=== PATIENT | male | born 1935 | race Caucasian/White ===

== ENCOUNTER → 2017-01-01 | Outpatient (CLI) | payer MEDICARE, BC | LOC: CPPFTMAIN 11:56 | PROVIDERS: ATTEND Internal Medicine Cardiovascular Disease | DX: R06.09 Other forms of dyspnea (principal) | CPT/HCPCS: 94060; 94726; 94729 ==

== ENCOUNTER → 2017-11-18 | Outpatient (CLI) | payer MEDICARE, BC ==
--- NOTE | 2017-11-18 15:46 | CT ---
EXAMINATION TYPE: CT chest w con DATE OF EXAM: 11/18/2017 COMPARISON: NONE HISTORY: Shortness of breath CT DLP: 271.7 mGycm. Automated Exposure Control for Dose Reduction was Utilized. TECHNIQUE: CT scan of the thorax is performed following with IV Contrast, patient injected with 100 mL of Isovue 300. FINDINGS: LUNGS: The lungs are grossly clear, there is no concerning parenchymal mass identified. There is no p leural effusion or pneumothorax seen. The tracheobronchial tree is patent. 8mm probable intrafissura l lymph node is seen along the minor fissure on series 4 image 36. This elongates on coronal series 6 image 21. Benign right middle lobe calcified granuloma is present. Adjacent noncalcified solid 4 mm right middle lobe nodule seen on series 4 image 40. Within the subpleural right lower lobe there are two 3 mm solid pulmonary nodules on series 4 image 40 and image 37. 4 mm left basilar subpleural pulm onary nodule seen in series 4 image 40. Focal parenchymal scarring is present adjacent to a chronic f racture deformity of a posterior lateral lower rib. MEDIASTINUM: Prominent 1 cm short axis right suprahilar lymph node is seen. There are no greater than 1 cm hilar or mediastinal lymph nodes. No pericardial effusion is seen. Extensive three-vessel co ronary calcifications are present. OTHER: The stomach is largely intrathoracic and dilated with debris seen in the distal esophagus. The re is extensive arthropathy of the left glenohumeral joint and extensive arthropathy of the right gle nohumeral joint to a lesser degree on the left. Chronic displaced fracture deformity that is partiall y callused of left rib 9 and its posterior lateral aspect is seen. Extensive degenerative changes of the visualized thoracolumbar spine are present. There is an exaggerated thoracic kyphosis and reg nakia deformity that is age indeterminate of T11. Old fracture deformity of the proximal sternal body is also seen that is corticated. S-shaped scoliotic curvature of the thoracolumbar spine is seen. IMPRESSION: 1. Largely intrathoracic dilated stomach with distal esophageal intraluminal debris that may relate t o reflux. 2. Bilateral pulmonary nodules that are subcentimeter (measuring up to 4 mm in the left lung base). C T thorax is recommended in one year for evaluation of stability. 3. Age-indeterminate compression deformity of the T11 vertebral body. Correlate with point tenderness to determine acuity. 4. Old fracture deformity of the proximal sternal body and displaced old fracture deformity of the po sterior lateral left rib 9 with resultant adjacent left basilar pulmonary fibrotic changes. 5. Extensive three-vessel coronary artery calcifications, marker of coronary artery disease.
== END | disposition home or self-care (01) ==
LOC: RADCTMAIN 13:55
PROVIDERS: ATTEND Internal Medicine
DX: R91.8 Other nonspecific abnormal finding of lung field (principal); I25.10 Atherosclerotic heart disease of native coronary artery without angina pectoris; R06.00 Dyspnea, unspecified
CPT/HCPCS: 82565; 84520; 71260; 36415; Q9967

== ENCOUNTER 2019-12-06 16:26 | Inpatient (IN) | payer MEDICARE, BC ==
[2019-12-06] MEDS ORDERED: SODIUM CHLORIDE 0.9% 500 ML 500 ML IV STA (16:28)
[2019-12-06] MEDS ORDERED: SODIUM CHLORIDE 0.9% 1,000 ML IV STA (16:28)
[2019-12-06] MEDS ORDERED: DOPamine DRIP 800 MG in DEXTROSE/WATER 1 250ML.BAG IV ONE (17:10)
[2019-12-06 17:17] LABS: Basophils % (A) 0 %; Eosinophils % (A) 0 %; HCT 39.3 % (39.0-53.0); HGB 13.2 gm/dL (13.0-17.5); Lymphocytes % (A) 12 %; MCHC 33.5 g/dL (31.0-37.0); MCV 98.6 fL (80.0-100.0); Mean Platelet Volume 8.9; Monocytes # (A) 0.5 k/uL (0-1.0); Monocytes % (A) 6 %; Neutrophils # (A) 6.4 k/uL (1.3-7.7); Neutrophils % (A) 80 %; RBC 3.99 m/uL (4.30-5.90); RDW 13.1 % (11.5-15.5)
[2019-12-06 17:19] LABS: Platelet Count 94 k/uL (150-450)
[2019-12-06 17:25] LABS: Albumin 4.2 g/dL (3.5-5.0); Calcium 10.4 mg/dL (8.4-10.2); Magnesium 2.3 mg/dL (1.6-2.3); Potassium 5.9 mmol/L (3.5-5.1); Total Protein 6.5 g/dL (6.3-8.2)
[2019-12-06] MEDS ORDERED: INSULIN REGULAR 100 UNIT/ML VIAL IV ONE (17:29)
[2019-12-06] MEDS ORDERED: SODIUM POLYSTYRENE SULFONATE 15 GM/60 ML BOTTLE PO ONE (17:29)
[2019-12-06] MEDS ORDERED: DEXTROSE 50% SYRINGE 50 ML IVP ONE (17:29)
[2019-12-06] MEDS ORDERED: SODIUM CHLORIDE 0.9% 500 ML 500 ML IV ONE (17:30)
[2019-12-06 17:33] LABS: INR 1.2 (<1.2); Partial Thromboplastin Time 21.9 sec (22.0-30.0); Prothrombin Time 12.1 sec (9.0-12.0)
--- NOTE | 2019-12-06 17:34 | ED ---
General Adult HPI - General Chief complaint: Arrhythmia/Palpitations Stated complaint: bradycardia Time Seen by Provider: 12/06/19 16:28 Source: patient, EMS, RN notes reviewed, old records reviewed Mode of arrival: EMS Limitations: no limitations - History of Present Illness Initial comments: 84-year-old male presenting for evaluation of generalized weakness and bradycardia. Patient was transferred from outside hospital, found to be in a junctional bradycardia, he was in acute renal failure with an elevated potassium. He was given medication for hyperkalemia and transferred for close monitoring, cardiology consultation. 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 Additionally he does take NSAIDs for arthritis pain. He denies vomiting. Denies diarrhea. No 3 days history of hyperkalemia, or chronic kidney disease. - Related Data Home Medications Medication Instructions Recorded Confirmed Gabapentin 400 mg PO BID 05/10/14 12/06/19 Latanoprost Ophth [Xalatan 0.005%] 1 drop BOTH EYES HS 05/10/14 12/06/19 Levothyroxine Sodium [Synthroid] 25 mcg PO DAILY 05/10/14 12/06/19 Ascorbic Acid [Vitamin C] 1,000 mg PO DAILY 05/02/15 12/06/19 Ca/D3/Mag/Zinc/Walker/Ed/Mgbor 1 tab PO BID 05/02/15 12/06/19 [Caltrate 600+D3+Min Chew Tab] Cholecalciferol [Vitamin D3] 1,000 unit PO DAILY 05/02/15 12/06/19 Cyanocobalamin [Vitamin B-12] 500 mcg PO DAILY 05/02/15 12/06/19 Fish Oil/Dha/Epa [Fish Oil 1,200 1 tab PO DAILY 05/02/15 12/06/19 mg Fish Oil] Glucosamine Sulfate 500 mg PO DAILY 05/02/15 12/06/19 Atorvastatin [Lipitor] 20 mg PO HS 04/16/16 12/06/19 Acetaminophen [Tylenol Extra 1,000 mg PO Q8H PRN 12/06/19 12/06/19 Strength] Levofloxacin 500 mg PO DAILY 12/06/19 12/06/19 Lysine [l-Lysine] 500 mg PO DAILY 12/06/19 12/06/19 Naproxen Sodium [Aleve] 220 mg PO BID 12/06/19 12/06/19 Omeprazole 20 mg PO BID 12/06/19 12/06/19 Tamsulosin [Flomax] 0.4 mg PO DAILY 12/06/19 12/06/19 Ultimate Colon Care Formula 1 cap PO TID 12/06/19 12/06/19 amLODIPine [Norvasc] 2.5 mg PO DAILY 12/06/19 12/06/19 Previous Rx's Medication Instructions Recorded Isosorbide Mononitrate ER [Imdur] 30 mg PO DAILY 90 Days tab 05/03/15 Metoprolol Tartrate [Lopressor] 25 mg PO BID #180 tablet 05/03/15 Allergies Allergy/AdvReac Type Severity Reaction Status Date / Time Penicillins Allergy Rash/Hives Verified 12/06/19 17:51 celecoxib [From Celebrex] AdvReac bp and Verified 12/06/19 17:51 heart rate went low when taken with bactrim sulfamethoxazole AdvReac bp and Verified 12/06/19 17:51 [From Bactrim] heart rate went low when taken with celebrex trimethoprim [From Bactrim] AdvReac bp and Verified 12/06/19 17:51 heart rate went low when taken with celebrex Review of Systems ROS Statement: Those systems with pertinent positive or pertinent negative responses have been documented in the HPI. ROS Other: All systems not noted in ROS Statement are negative. Past Medical History Past Medical History: Eye Disorder, GERD/Reflux, Hyperlipidemia, Hypertension, Osteoarthritis (OA), Prostate Disorder, Thyroid Disorder Additional Past Medical History / Comment(s): HIATAL HERNIA, gluacoma History of Any Multi-Drug Resistant Organisms: None Reported Past Surgical History: Appendectomy, Heart Catheterization, Hernia Repair Additional Past Surgical History / Comment(s): BARBRA CATARACT, bowel surgery bowel was twisted Past Anesthesia/Blood Transfusion Reactions: No Reported Reaction Past Psychological History: No Psychological Hx Reported Smoking Status: Never smoker - Past Family History Mother Family Medical History: No Reported History General Exam Limitations: no limitations General appearance: alert, in no apparent distress Head exam: Present: atraumatic, normocephalic Eye exam: Present: normal appearance, PERRL ENT exam: Present: mucous membranes dry Neck exam: Present: normal inspection. Absent: tenderness, meningismus Respiratory exam: Present: normal lung sounds bilaterally. Absent: respiratory distress, wheezes Cardiovascular Exam: Present: normal rhythm, bradycardia GI/Abdominal exam: Present: soft. Absent: distended, tenderness, guarding Extremities exam: Present: normal inspection, normal capillary refill. Absent: pedal edema, calf tenderness Neurological exam: Present: alert, oriented X3, CN II-XII intact. Absent: motor sensory deficit Psychiatric exam: Present: normal affect, normal mood Skin exam: Present: warm, dry, intact. Absent: cyanosis, diaphoretic Course Vital Signs 12/06/19 12/06/19 16:27 18:38 Temperature 97.9 F Pulse Rate 36 L 44 L Respiratory 16 16 Rate Blood Pressure 110/64 85/55 O2 Sat by Pulse 97 96 Oximetry - Reevaluation(s) Reevaluation #1: 12/06/19 17:[address] Cristobal in the emergency department recommends initiating dopamine at 5 mics. EKG Findings - EKG Comments: EKG Findings:: Junctional rhythm, low voltage, no ST segment elevation rate of 38, QRS duration 98, QTC 394. EKG repeated at 1815, interpreted as sinus rhythm, suspect atrial fib with incomplete right bundle, rate of 71, OR interval 144, QRS duration 104, QTC 447 Medical Decision Making - Medical Decision Making 84-year-old male presenting as a transfer from outside hospital with junctional rhythm, acute renal failure, hyperkalemia. Patient is bradycardic with a stable blood pressure upon arrival. Complaining of some fatigue and generalized weakness. No dyspnea, no chest pain. He appears dehydrated with dry mucous membranes. He is given additional IV fluid, laboratory studies are repeated, he has acute renal failure continues to have an elevated potassium 5.9. This is treated with insulin, dextrose, IV fluids, Kayexalate. He is evaluated by cardiology Dr. Cristobal in the emergency department does recommend dopamine. He is started on dopamine with significant improvement in heart rate. Blood pressure remained stable. I discussed case with Dr. Huffman, recommends 100 mL of normal saline per hour and recheck potassium in 4 hours. Diagnosis: Junctional rhythm, bradycardia, acute renal failure, hyperkalemia, dehydration - Lab Data Result diagrams: 12/06/19 16:41 12/06/19 16:41 Lab Results 12/06/19 12/06/19 12/06/19 Range/Units 16:41 16:41 16:41 WBC 8.0 (3.8-10.6) k/uL RBC 3.99 L (4.30-5.90) m/uL Hgb 13.2 (13.0-17.5) gm/dL Hct 39.3 (39.0-53.0) % MCV 98.6 (80.0-100.0) fL MCH 33.0 (25.0-35.0) pg MCHC 33.5 (31.0-37.0) g/dL RDW 13.1 (11.5-15.5) % Plt Count 94 L (150-450) k/uL Neutrophils % 80 % Lymphocytes % 12 % Monocytes % 6 % Eosinophils % 0 % Basophils % 0 % Neutrophils # 6.4 (1.3-7.7) k/uL Lymphocytes # 1.0 (1.0-4.8) k/uL Monocytes # 0.5 (0-1.0) k/uL Eosinophils # 0.0 (0-0.7) k/uL Basophils # 0.0 (0-0.2) k/uL PT 12.1 H (9.0-12.0) sec INR 1.2 H (<1.2) APTT 21.9 L (22.0-30.0) sec Sodium 136 L (137-145) mmol/L Potassium 5.9 H (3.5-5.1) mmol/L Chloride 101 (98-107) mmol/L Carbon Dioxide 23 (22-30) mmol/L Anion Gap 12 mmol/L BUN 105 H* (9-20) mg/dL Creatinine 3.65 H (0.66-1.25) mg/dL Est GFR (CKD-EPI)AfAm 17 (>60 ml/min/1.73 sqM) Est GFR (CKD-EPI)NonAf 14 (>60 ml/min/1.73 sqM) Glucose 88 (74-99) mg/dL Plasma Lactic Acid Ector (0.7-2.0) mmol/L Calcium 10.4 H (8.4-10.2) mg/dL Magnesium 2.3 (1.6-2.3) mg/dL Total Bilirubin 1.0 (0.2-1.3) mg/dL AST 76 H (17-59) U/L ALT 84 H (4-49) U/L Alkaline Phosphatase 59 (38-126) U/L Troponin I (0.000-0.034) ng/mL Total Protein 6.5 (6.3-8.2) g/dL Albumin 4.2 (3.5-5.0) g/dL 12/06/19 12/06/19 Range/Units 16:41 16:41 WBC (3.8-10.6) k/uL RBC (4.30-5.90) m/uL Hgb (13.0-17.5) gm/dL Hct (39.0-53.0) % MCV (80.0-100.0) fL MCH (25.0-35.0) pg MCHC (31.0-37.0) g/dL RDW (11.5-15.5) % Plt Count (150-450) k/uL Neutrophils % % Lymphocytes % % Monocytes % % Eosinophils % % Basophils % % Neutrophils # (1.3-7.7) k/uL Lymphocytes # (1.0-4.8) k/uL Monocytes # (0-1.0) k/uL Eosinophils # (0-0.7) k/uL Basophils # (0-0.2) k/uL PT (9.0-12.0) sec INR (<1.2) APTT (22.0-30.0) sec Sodium (137-145) mmol/L Potassium (3.5-5.1) mmol/L Chloride (98-107) mmol/L Carbon Dioxide (22-30) mmol/L Anion Gap mmol/L BUN (9-20) mg/dL Creatinine (0.66-1.25) mg/dL Est GFR (CKD-EPI)AfAm (>60 ml/min/1.73 sqM) Est GFR (CKD-EPI)NonAf (>60 ml/min/1.73 sqM) Glucose (74-99) mg/dL Plasma Lactic Acid Ector 1.8 (0.7-2.0) mmol/L Calcium (8.4-10.2) mg/dL Magnesium (1.6-2.3) mg/dL Total Bilirubin (0.2-1.3) mg/dL AST (17-59) U/L ALT (4-49) U/L Alkaline Phosphatase (38-126) U/L Troponin I 0.027 (0.000-0.034) ng/mL Total Protein (6.3-8.2) g/dL Albumin (3.5-5.0) g/dL Critical Care Time Critical Care Time: Yes Total Critical Care Time: 35 Disposition Clinical Impression: Junctional bradycardia, Acute renal failure, Hyperkalemia Disposition: ADMITTED IP TO THIS [facility] Condition: Stable Is patient prescribed a controlled substance at d/c from ED?: No Referrals: Benji Turcios MD [Primary Care Provider] - 1-2 days Decision to Admit Reason: Admit from EC Decision Date: 12/06/19 Decision Time: 18:41
[2019-12-06] MEDS ORDERED: ACETAMINOPHEN TAB 325 MG TAB PO PRN (18:41)
[2019-12-06] MEDS ORDERED: NALOXONE 0.4 MG/ML 1 ML VIAL IV PRN (18:41)
[2019-12-06 21:30] LABS: Albumin 4.1 g/dL (3.5-5.0); Calcium 9.9 mg/dL (8.4-10.2); Potassium 5.4 mmol/L (3.5-5.1); Total Bilirubin 1.1 mg/dL (0.2-1.3); Total Protein 6.4 g/dL (6.3-8.2)
[2019-12-06 22:41] LABS: Glucose,Whole Blood 124 mg/dL (75-99)
--- NOTE | 2019-12-06 23:20 | CONS ---
CONSULTATION CHIEF COMPLAINT: Bradycardia. Hugh is an 84-year-old gentleman with a history of hypothyroidism and hypertension who presented to hospital complaining of generalized weakness, fatigue, tiredness. He initially presented to hospital in [place], was found to be in junctional bradycardia with severe hyperkalemia, and he was transferred over to [facility]. At the time of my evaluation, the patient is comfortable at rest, stable, not in distress. He remains with a heart rate of 36 beats per minute, blood pressure is 100/64, respiratory rate is 18. Labs show that the potassium is elevated at 5.9. AST and ALT are elevated. Troponin is normal. Hemoglobin is 13.2. EKG shows junctional bradycardia with a heart rate of 38 beats per minute. I spoke to the ER physician and asked him to address the hyperkalemia with insulin dextrose, Kayexalate and calcium gluconate. Once this is done, I anticipate his heart rate improving. We will also start him on a small dose of dopamine. If he develops symptomatic hypotension or significant pauses, he will need temporary pacemaker tonight. Patient is on beta blockers. Obviously we are going to hold it for now. PAST MEDICAL HISTORY: Past medical history is significant for hypothyroidism, hypertension, questionable history of angina. MEDICATIONS: Medications include Imdur 30 daily, Lawrence, Neurontin, B12, clindamycin, Lipitor,aspirin, vitamin C. ALLERGIES: PENICILLIN, CELEBREX, BACTRIM. FAMILY HISTORY: Negative for premature coronary artery disease. SOCIAL HISTORY: Negative for current smoking, EtOH abuse or drug abuse. REVIEW OF SYSTEMS: HEENT is unremarkable. CARDIAC: As described above. RESPIRATORY: As described above. GI: Negative. GENITOURINARY: Negative. ALLERGY: Negative. IMMUNOLOGY: Negative. SKIN: Negative. MUSCULOSKELETAL: Significant for arthritis. PSYCHOSOCIAL: Negative. ENDOCRINE: Negative. CONSTITUTIONAL: Significant for fatigue, tiredness, not feeling well. PHYSICAL EXAMINATION: The patient is bradycardic. Blood pressure is 110/64, respiratory rate 18. Chest exam reveals good air entry bilaterally. Heart exam reveals first and second heart sounds. No gallop. He has a systolic murmur at the left lower sternal border. Abdomen is soft. Examination of extremities reveals bilateral 1+ pitting edema. Peripheral pulses are palpable. LABS: Labs show that the potassium is 5.9, BUN is 105, creatinine is 3.6. Magnesium is 2.3. ASSESSMENT: 1. Junctional bradycardia secondary to hyperkalemia. 2. Acute renal failure. PLAN: Will treat the hyperkalemia, hydrate the patient, consult Nephrology. I will obtain a 2D echo. Hold the beta blockers. intravenous dopamine for bradycardia. Patient may need a temporary pacemaker if he becomes symptomatic or develops significant pauses, but I anticipate the heart rate improving once the hyperkalemia is corrected. DESTINEE / MARK: [id number] /
--- NOTE | 2019-12-07 | P.HPIM ---
History of Present Illness H&P Date: 12/06/19 Chief Complaint: 1 acute kidney failure, severe bradycardia and sick sinus s yndrome, advance 84-year-old male one of Dr. Turcios's patient who was in the office 2 weeks ago for second finger infection of the right hand was treated with oral antibiotic without improvement ended up having another antibiotics orally according to 's and has done slightly but better with it. 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 Patient ended up going to the emergency department and [facility] where was found to be in acute renal failure with significant hyperkalemia and found to have severe bradycardia with junctional rhythm with pulse rate running in the 40s. Not a clear with of the acute renal failure happen first or the heart block causing hypoperfusion and renal failure is the reason. Patient ended up having transcutaneous pacer was started on hydration consult nephrology will be admitted to the ICU the rest of his lab value with the bun up to 105 creatinine 2.65 his calcium was 10.4 potassium 5.9. Patient will be seen cardiology and nephrology slightly elevated liver function tests most likely from hypoperfusion as well. Review of Systems CONSTITUTIONAL: Well-developed no acute respiratory distress. Looks older than his age. EYES: No icterus sclerae, no conjunctivitis. EARS, NOSE, MOUTH, THROAT, and FACE: No sore throat, lymphadenopathy, carotid bruits or deformity. RESPIRATORY: Mild shortness of breath. CARDIOVASCULAR: Severe bradycardia with PND orthopnea and palpitation. GASTROINTESTINAL: Abdominal pain with nausea no vomiting. GENITOURINARY: Decrease urine output with acute renal failure. INTEGUMENT/BREAST: Negative for any muscular injury with mild osteoarthritis.. HEMATOLOGIC/LYMPHATIC: Negative for bleed or purpura. MUSCULOSKELTAL: Negative for Myalgia or arthralgia. NEURLOGICAL: Presyncope generalized weakness and worsening dementia. BEHAVIORAL/PSYCH: Negative. ENDOCRINE: Negative. Past Medical History Past Medical History: Eye Disorder, GERD/Reflux, Hyperlipidemia, Hypertension, Osteoarthritis (OA), Prostate Disorder, Thyroid Disorder Additional Past Medical History / Comment(s): HIATAL HERNIA, gluacoma History of Any Multi-Drug Resistant Organisms: None Reported Past Surgical History: Appendectomy, Heart Catheterization, Hernia Repair Additional Past Surgical History / Comment(s): BARBRA CATARACT, bowel surgery bowel was twisted Past Anesthesia/Blood Transfusion Reactions: No Reported Reaction Past Psychological History: No Psychological Hx Reported Smoking Status: Never smoker - Past Family History Mother Family Medical History: No Reported History Medications and Allergies Home Medications Medication Instructions Recorded Confirmed Type Gabapentin 400 mg PO BID 05/10/14 12/06/19 History Latanoprost Ophth [Xalatan 0.005%] 1 drop BOTH EYES HS 05/10/14 12/06/19 History Levothyroxine Sodium [Synthroid] 25 mcg PO DAILY 05/10/14 12/06/19 History Ascorbic Acid [Vitamin C] 1,000 mg PO DAILY 05/02/15 12/06/19 History Ca/D3/Mag/Zinc/Walker/Ed/Mgbor 1 tab PO BID 05/02/15 12/06/19 History [Caltrate 600+D3+Min Chew Tab] Cholecalciferol [Vitamin D3] 1,000 unit PO DAILY 05/02/15 12/06/19 History Cyanocobalamin [Vitamin B-12] 500 mcg PO DAILY 05/02/15 12/06/19 History Fish Oil/Dha/Epa [Fish Oil 1,200 1 tab PO DAILY 05/02/15 12/06/19 History mg Fish Oil] Glucosamine Sulfate 500 mg PO DAILY 05/02/15 12/06/19 History Isosorbide Mononitrate ER [Imdur] 30 mg PO DAILY 90 Days tab 05/03/15 12/06/19 Rx Metoprolol Tartrate [Lopressor] 25 mg PO BID #180 tablet 05/03/15 12/06/19 Rx Atorvastatin [Lipitor] 20 mg PO HS 04/16/16 12/06/19 History Acetaminophen [Tylenol Extra 1,000 mg PO Q8H PRN 12/06/19 12/06/19 History Strength] Levofloxacin 500 mg PO DAILY 12/06/19 12/06/19 History Lysine [l-Lysine] 500 mg PO DAILY 12/06/19 12/06/19 History Naproxen Sodium [Aleve] 220 mg PO BID 12/06/19 12/06/19 History Omeprazole 20 mg PO BID 12/06/19 12/06/19 History Tamsulosin [Flomax] 0.4 mg PO DAILY 12/06/19 12/06/19 History Ultimate Colon Care Formula 1 cap PO TID 12/06/19 12/06/19 History amLODIPine [Norvasc] 2.5 mg PO DAILY 12/06/19 12/06/19 History Allergies Allergy/AdvReac Type Severity Reaction Status Date / Time Penicillins Allergy Rash/Hives Verified 12/06/19 17:51 celecoxib [From Celebrex] AdvReac bp and Verified 12/06/19 17:51 heart rate went low when taken with bactrim sulfamethoxazole AdvReac bp and Verified 12/06/19 17:51 [From Bactrim] heart rate went low when taken with celebrex trimethoprim [From Bactrim] AdvReac bp and Verified 12/06/19 17:51 heart rate went low when taken with celebrex Physical Exam Vitals: Vital Signs Temp Pulse Resp BP Pulse Ox 12/06/19 22:41 97.7 F 52 L 18 115/61 97 12/06/19 22:04 97.9 F 56 L 18 122/61 97 12/06/19 20:36 55 L 16 91/52 96 12/06/19 18:38 44 L 16 85/55 96 12/06/19 16:27 97.9 F 36 L 16 110/64 97 Intake and Output 12/06/19 12/06/19 12/07/19 14:59 22:59 06:59 Intake Total 19.735 Output Total 500 Balance -480.265 Intake: Intake, IV Titration 19.735 Amount DOPamine DRIP 800 mg In 19.735 Dextrose/Water 1 250ml. bag @ 5 MCG/KG/MIN 5.528 mls/hr IV .Q24H ONE Rx#: [id number] Output: Urine 500 Other: Weight 58.967 kg General Appearance: Alert, cooperative, no distress, appears stated age. Neck HEENT: Supple, no lymphadenopathy, no thyroid enlargement, no carotid bruits. Lungs: Decreased breath some bilateral fine rhonchi. No crackles mild expiratory wheezes. Chest Wall: Decrease expansion with deep inspiration no tenderness and no deformity was found on exam, no costochondral pain or discomfort. Heart: Irregular rate and rhythm, S1, S2 possible history positive JVD with severe bradycardia and arrhythmia with systolic murmur. Back: Symmetric, no curvature, ROM normal, no CVA tenderness. Abdomen: Soft, non-tender, bowel sounds active all four quadrants, no masses, no organomegaly. Extremities: Severe advance arthralgia look like severe osteoarthritis with mild healing cellulitis and small ulcer area on the second finger on the right side. Pulses: 2+ and symmetric. Skin: Skin color, texture, tugor normal, no rashes or lesions. Neurologic: Alert oriented with severe confusion moving all his 4 extremities generalized weakness no focal deficit. Results CBC & Chem 7: 12/06/19 16:41 12/06/19 20:59 Labs: Abnormal Lab Results - Last 24 Hours (Table) 12/06/19 12/06/19 12/06/19 Range/Units 16:41 16:41 16:41 RBC 3.99 L (4.30-5.90) m/uL Plt Count 94 L (150-450) k/uL PT 12.1 H (9.0-12.0) sec INR 1.2 H (<1.2) APTT 21.9 L (22.0-30.0) sec Sodium 136 L (137-145) mmol/L Potassium 5.9 H (3.5-5.1) mmol/L Carbon Dioxide (22-30) mmol/L BUN 105 H* (9-20) mg/dL Creatinine 3.65 H (0.66-1.25) mg/dL Glucose (74-99) mg/dL POC Glucose (mg/dL) (75-99) mg/dL Calcium 10.4 H (8.4-10.2) mg/dL AST 76 H (17-59) U/L ALT 84 H (4-49) U/L 12/06/19 12/06/19 Range/Units 20:59 22:40 RBC (4.30-5.90) m/uL Plt Count (150-450) k/uL PT (9.0-12.0) sec INR (<1.2) APTT (22.0-30.0) sec Sodium 136 L (137-145) mmol/L Potassium 5.4 H (3.5-5.1) mmol/L Carbon Dioxide 20 L (22-30) mmol/L BUN 100 H (9-20) mg/dL Creatinine 3.48 H (0.66-1.25) mg/dL Glucose 139 H (74-99) mg/dL POC Glucose (mg/dL) 124 H (75-99) mg/dL Calcium (8.4-10.2) mg/dL AST 67 H (17-59) U/L ALT 74 H (4-49) U/L Thrombosis Risk Factor Assmnt - DVT/VTE Prophylaxis DVT/VTE Prophylaxis: Pharmacologic Prophylaxis ordered, Mechanical Prophylaxis ordered Assessment and Plan Assessment: 1 acute renal failure: Most likely acute tubular necrosis from hypoperfusion possibly from severe bradycardia and junctional rhythm or sick sinus syndrome might be causing the symptoms Will continue hydration consult nephrology correct the bradycardia seated improve the kidney function. 2 severe bradycardia with sick sinus syndrome and junctional rhythm, patient still have significant hyperkalemia can be a big contributing factor which will be corrected for now keep watching patient on heart monitor had temporary transcutaneous pacer for now see cardiology further testing to be done. Might need a pacemaker, echocardiogram will be done if his ejection fraction is very low patient might need an ICD he had 1 PCI in the past and has been seen Dr. Robert cardiology regularly. 3 severe hypokalemia and hypercalcemia: Continue hydration D50 with IV insulin and repeat potassium short period of time. 4 abnormal liver function test: Most likely from hypoperfusion from the severity of the heart block and renal failure. 5 acute cellulitis of the right second finger was treated with Levaquin orally recently. 6 hyperlipidemia: Has been on atorvastatin 20 mg daily. 7 severe thrombocytopenia: Not a clear etiology platelet are downgoing 4000 repeat tomorrow this is could be from sepsis could be from any other abnormality. 8 hypothyroidism: Continue patient on levothyroxine 25 g daily. 9 severe neuropathy: Has been on gabapentin 400 mg daily. 10 hypertension: Patient was on Norvasc and metoprolol not a clear when he is taking his metoprolol last time but will hold off metoprolol for now. 11 GI prophylaxis: We'll continue patient on pantoprazole. 12 DVT prophylaxis: Knee-high LUI hose and early mobilization and avoid heparin drip for now and any anti- coagulation for now. CODE STATUS: Full code. Admit patient to inpatient status for more than 2 nights.
[2019-12-07 03:12] LABS: Appearance,Urine Clear (Clear); Bilirubin,Urine Negative (Negative); Blood,Urine Moderate (Negative); Color,Urine Yellow; Glucose,Urine (UA) Negative (Negative); Hyaline Casts,Urine 3 /lpf (0-2); Ketones,Urine Negative (Negative); Leukocyte Esterase,Urine Small (Negative); Mucus,Urine Rare /hpf; Nitrite,Urine Negative (Negative); Protein,Urine Trace (Negative); RBC,Urine 41 /hpf (0-5); Specific Gravity,Urine 1.018 (1.001-1.035); Urobilinogen,Urine <2.0 mg/dL (<2.0); WBC,Urine 7 /hpf (0-5)
[2019-12-07] MEDS: SODIUM CHLORIDE 0.9% 1,000 ML IV SCH ×2 (04:48→20:59)
[2019-12-07 05:09] LABS: Calcium 9.6 mg/dL (8.4-10.2); Magnesium 2.1 mg/dL (1.6-2.3); Phosphorus 5.4 mg/dL (2.5-4.5)
[2019-12-07 05:23] LABS: Basophils % (A) 0 %; Eosinophils # (A) 0.1 k/uL (0-0.7); Eosinophils % (A) 2 %; HCT 39.4 % (39.0-53.0); HGB 13.2 gm/dL (13.0-17.5); Lymphocytes # (A) 1.4 k/uL (1.0-4.8); Lymphocytes % (A) 17 %; MCHC 33.4 g/dL (31.0-37.0); MCV 98.8 fL (80.0-100.0); Mean Platelet Volume 8.6; Monocytes # (A) 0.6 k/uL (0-1.0); Monocytes % (A) 7 %; Neutrophils # (A) 5.9 k/uL (1.3-7.7); Neutrophils % (A) 73 %; RBC 3.99 m/uL (4.30-5.90); RDW 13.1 % (11.5-15.5); WBC 8.1 k/uL (3.8-10.6)
[2019-12-07 05:35] LABS: Platelet Count 86 k/uL (150-450)
[2019-12-07 06:10] LABS: Potassium 4.8 mmol/L (3.5-5.1)
--- NOTE | 2019-12-07 10:24 | P.NPCON ---
History of Present Illness - Reason for Consult acute renal failure, hyperkalemia - History of Present Illness Reason for consultation: Acute kidney injury and hyperkalemia History of present illness: Patient is a 84-year-old male seen in consultation for acute kidney injury and hyperkalemia. Patient is somewhat confused at this time and doesn't recall why he came to the hospital. Per records, it appears patient came to the hospital with generalized weakness. He was noted to be bradycardic. His potassium level was elevated at 5.9 which was medically treated. It improved to 5.4 and this morning it is down to 4.8. He is currently in sinus rhythm. He is maintained on 6 mics of dopamine as well as IV fluids. Patient does admit to taking Aleve twice daily on a regular basis. He denies chest pain or shortness of breath. Good urine output. No hematuria or dysuria. No history of diabetes. Denies family history of renal disease. Oral intake is fair. Denies vomiting or diarrhea at this time. Patient was also recently treated for finger infection as an outpatient. He initially presented to [facility] and was subsequently transferred here for further management of renal failure as well as a bradycardia. Patient's pulse initially was in the 40s. He also had a temporary pacemaker placed. Vital signs are stable. Currently on dopamine. General: The patient appeared well nourished and normally developed. HEENT: Head exam is unremarkable. Neck is without jugular venous distension. LUNGS: Lungs are clear to auscultation and percussion. Breath sounds decreased. HEART: Rate and Rhythm are regular. ABDOMEN: Soft, nontender. EXTREMITITES: No edema. Past Medical History Past Medical History: Eye Disorder, GERD/Reflux, Hyperlipidemia, Hypertension, Osteoarthritis (OA), Prostate Disorder, Thyroid Disorder Additional Past Medical History / Comment(s): HIATAL HERNIA, gluacoma History of Any Multi-Drug Resistant Organisms: None Reported Past Surgical History: Appendectomy, Heart Catheterization, Hernia Repair Additional Past Surgical History / Comment(s): BARBRA CATARACT, bowel surgery bowel was twisted Past Anesthesia/Blood Transfusion Reactions: No Reported Reaction Past Psychological History: No Psychological Hx Reported Smoking Status: Never smoker - Past Family History Mother Family Medical History: No Reported History Medications and Allergies Home Medications Medication Instructions Recorded Confirmed Type Gabapentin 400 mg PO BID 05/10/14 12/06/19 History Latanoprost Ophth [Xalatan 0.005%] 1 drop BOTH EYES HS 05/10/14 12/06/19 History Levothyroxine Sodium [Synthroid] 25 mcg PO DAILY 05/10/14 12/06/19 History Ascorbic Acid [Vitamin C] 1,000 mg PO DAILY 05/02/15 12/06/19 History Ca/D3/Mag/Zinc/Walker/Ed/Mgbor 1 tab PO BID 05/02/15 12/06/19 History [Caltrate 600+D3+Min Chew Tab] Cholecalciferol [Vitamin D3] 1,000 unit PO DAILY 05/02/15 12/06/19 History Cyanocobalamin [Vitamin B-12] 500 mcg PO DAILY 05/02/15 12/06/19 History Fish Oil/Dha/Epa [Fish Oil 1,200 1 tab PO DAILY 05/02/15 12/06/19 History mg Fish Oil] Glucosamine Sulfate 500 mg PO DAILY 05/02/15 12/06/19 History Isosorbide Mononitrate ER [Imdur] 30 mg PO DAILY 90 Days tab 05/03/15 12/06/19 Rx Metoprolol Tartrate [Lopressor] 25 mg PO BID #180 tablet 05/03/15 12/06/19 Rx Atorvastatin [Lipitor] 20 mg PO HS 04/16/16 12/06/19 History Acetaminophen [Tylenol Extra 1,000 mg PO Q8H PRN 12/06/19 12/06/19 History Strength] Levofloxacin 500 mg PO DAILY 12/06/19 12/06/19 History Lysine [l-Lysine] 500 mg PO DAILY 12/06/19 12/06/19 History Naproxen Sodium [Aleve] 220 mg PO BID 12/06/19 12/06/19 History Omeprazole 20 mg PO BID 12/06/19 12/06/19 History Tamsulosin [Flomax] 0.4 mg PO DAILY 12/06/19 12/06/19 History Ultimate Colon Care Formula 1 cap PO TID 12/06/19 12/06/19 History amLODIPine [Norvasc] 2.5 mg PO DAILY 12/06/19 12/06/19 History Allergies Allergy/AdvReac Type Severity Reaction Status Date / Time Penicillins Allergy Rash/Hives Verified 12/06/19 17:51 celecoxib [From Celebrex] AdvReac bp and Verified 12/06/19 17:51 heart rate went low when taken with bactrim sulfamethoxazole AdvReac bp and Verified 12/06/19 17:51 [From Bactrim] heart rate went low when taken with celebrex trimethoprim [From Bactrim] AdvReac bp and Verified 12/06/19 17:51 heart rate went low when taken with celebrex Physical Exam Vitals: Vital Signs Temp Pulse Resp BP Pulse Ox 12/07/19 07:00 58 L 11 L 95/45 92 L 12/07/19 06:30 56 L 9 L 139/69 94 L 12/07/19 06:00 58 L 12 126/66 95 12/07/19 05:30 57 L 10 L 149/77 99 12/07/19 05:00 57 L 12 135/64 93 L 12/07/19 04:30 59 L 17 149/73 95 12/07/19 04:00 98.2 F 57 L 12 143/78 93 L 12/07/19 03:30 61 11 L 145/75 93 L 12/07/19 03:00 65 18 133/67 92 L 12/07/19 02:30 55 L 14 134/85 97 12/07/19 02:00 60 16 138/97 95 12/07/19 01:30 62 15 138/73 94 L 12/07/19 01:00 55 L 12 125/62 94 L 12/07/19 00:38 96 12/07/19 00:30 56 L 14 145/77 94 L 12/07/19 00:00 98 F 58 L 12 147/70 93 L 12/06/19 23:30 60 22 161/97 92 L 12/06/19 23:00 97.8 F 45 L 10 L 140/63 93 L 12/06/19 22:41 97.7 F 52 L 18 115/61 97 12/06/19 22:04 97.9 F 56 L 18 122/61 97 12/06/19 20:36 55 L 16 91/52 96 12/06/19 18:38 44 L 16 85/55 96 12/06/19 16:27 97.9 F 36 L 16 110/64 97 Intake and Output 06/23/20 06/24/20 06/24/20 22:59 06:59 14:59 Intake Total 19.735 775 400 Output Total 500 465 305 Balance -480.265 310 95 Intake: IV 775 400 Sodium Chloride 0.9% 1, 775 400 000 ml @ 100 mls/hr IV . Q10H STA Rx#:[id number] Intake, IV Titration 19.735 Amount DOPamine DRIP 800 mg In 19.735 Dextrose/Water 1 250ml. bag @ 5 MCG/KG/MIN 5.528 mls/hr IV .Q24H ONE Rx#: [id number] Output: Urine 500 465 305 Other: Voiding Method Indwelling Catheter Weight 58.967 kg 57.2 kg Results - Lab Results Most recent lab results Calcium 9.6 mg/dL (8.4-10.2) 12/07/19 04:38 Phosphorus 5.4 mg/dL (2.5-4.5) H 12/07/19 04:38 Magnesium 2.1 mg/dL (1.6-2.3) 12/07/19 04:38 12/07/19 04:38 12/07/19 04:38 Assessment and Plan Plan: Assessment: 1. Acute kidney injury mostly prerenal secondary to hemodynamic instability/bradycardia. Creatinine was 3.65 on admission and is 2.81 today. Baseline creatinine from November 2017 near 1. Trace proteinuria on UA. 2. Junctional bradycardia, resolved. Currently on dopamine. Cardiology following. Doubt due to hyperkalemia as potassium level was only mildly elevated. 3. Hyperkalemia secondary to acute kidney injury, nonsteroidals and metabolic acidosis. Resolved. 4. Benign hypertension. Currently stable. 5. Metabolic acidosis secondary to acute kidney injury. Plan: Maintain normal saline at 100 mL an hour. Add oral sodium bicarbonate. Wean dopamine per cardiology. Follow-up renal ultrasound. Continue to monitor renal function and urine output. Thank you for the conservation. I will continue to follow the patient with you during his hospital stay.
--- NOTE | 2019-12-07 11:20 | US ---
EXAMINATION TYPE: US kidneys/renal and bladder DATE OF EXAM: 12/07/2019 COMPARISON: NONE CLINICAL HISTORY: 84-year-old male acute kidney failure. Renal failure. TECHNIQUE: Multiple sonographic images of the kidneys and bladder are obtained. FINDINGS: SONOGRAPHY NOTES: Exam limited due to patient postioning. EXAM MEASUREMENTS: Right Kidney: 7.1 x 4.1 x 3.9 cm Left Kidney: 8.5 x 4.2 x 3.6 cm Right Kidney: Limited. No hydronephrosis. 1.5 cm mid pole cyst. Left Kidney: No hydronephrosis. 1.7 cm upper pole cyst. Bladder: Salgado catheter decompresses the bladder limiting its evaluation. Bilateral Jets seen: No IMPRESSION: No hydronephrosis. A benign cyst on either side. Patient positioning limited visualization of portion s of the right kidney. Salgado catheter in place.
--- NOTE | 2019-12-07 12:23 | P.PN ---
Subjective Progress Note Date: 12/07/19 84-year-old male one of Dr. Turcios's patient who was in the office 2 weeks ago for second finger infection of the right hand was treated with oral antibiotic without improvement ended up having another antibiotics orally according to 's and has done slightly but better with it. 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 Patient ended up going to the emergency department and [facility] where was found to be in acute renal failure with significant hyperkalemia and found to have severe bradycardia with junctional rhythm with pulse rate running in the 40s. Not a clear with of the acute renal failure happen first or the heart block causing hypoperfusion and renal failure is the reason. Patient ended up having transcutaneous pacer was started on hydration consult nephrology will be admitted to the ICU the rest of his lab value with the bun up to 105 creatinine 2.65 his calcium was 10.4 potassium 5.9. Patient will be seen cardiology and nephrology slightly elevated liver function tests most likely from hypoperfusion as well. 12/06: Patient remains in the intensive care unit. He has been in a sinus rhythm and heart rate is running in the 50s and 60s. He was seen by cardiology and started on dopamine drip for bradycardia. Beta alonzo on hold. Echocardiogram is currently pending. Blood pressure 149/77, pulse ox 94% on 2 L. He is currently on IV fluids 100 mL per hour. He has had good urine output. He is eating without nausea or vomiting. He continues to have significant weakness. Renal ultrasound reveals no hydronephrosis. Benign cyst on either side. Limited visualization of portions of the right kidney. He has a Salgado catheter in place. Repeat lab work reveals improvement of his renal function through the night. Currently BUN is 99 and creatinine 2.81. Potassium 4.8, hemoglobin 13.2. Phosphorus is 5.4. TSH 1.660. Urinalysis clear with blood moderate, leukoesterase small, RBCs 41, WBC 7. Review of Systems CONSTITUTIONAL: Well-developed no acute respiratory distress. Looks older than his age. Denies lightheadedness or dizziness. EYES: No icterus sclerae, no conjunctivitis. EARS, NOSE, MOUTH, THROAT, and FACE: No sore throat, lymphadenopathy, carotid bruits or deformity. RESPIRATORY: Mild shortness of breath. CARDIOVASCULAR: Severe bradycardia improved with PND orthopnea and palpitation. GASTROINTESTINAL: Abdominal pain with nausea no vomiting. GENITOURINARY: Decrease urine output with acute renal failure. INTEGUMENT/BREAST: Negative for any muscular injury with mild osteoarthritis.. HEMATOLOGIC/LYMPHATIC: Negative for bleed or purpura. MUSCULOSKELTAL: Negative for Myalgia or arthralgia. NEURLOGICAL: Presyncope generalized weakness and worsening dementia. BEHAVIORAL/PSYCH: Negative. ENDOCRINE: Negative. Physical examination General Appearance: Alert, cooperative, no distress, appears stated age. Neck HEENT: Supple, no lymphadenopathy, no thyroid enlargement, no carotid bruits. Lungs: Decreased breath some bilateral fine rhonchi. No crackles mild expiratory wheezes. Chest Wall: Decrease expansion with deep inspiration no tenderness and no deformity was found on exam, no costochondral pain or discomfort. Heart: Irregular rate and rhythm, S1, S2 possible history positive JVD with severe bradycardia and arrhythmia with systolic murmur. Back: Symmetric, no curvature, ROM normal, no CVA tenderness. Abdomen: Soft, non-tender, bowel sounds active all four quadrants, no masses, no organomegaly. Salgado catheter draining clear dai urine. Extremities: Severe advance arthralgia look like severe osteoarthritis with mild healing cellulitis and small ulcer area on the second finger on the right side. Pulses: 2+ and symmetric. Skin: Skin color, texture, tugor normal, no rashes or lesions. Neurologic: Alert oriented with severe confusion moving all his 4 extremities generalized weakness no focal deficit. Assessment and plan 1 acute renal failure, acute tubular necrosis from hypoperfusion possibly from severe bradycardia and junctional rhythm. IV fluids are cc per hour. Consult with nephrology appreciated. No hydronephrosis noted on ultrasound. Continue to monitor renal function, I&O 2 severe bradycardia with sick sinus syndrome and junctional rhythm. Patient has been seen by cardiology and dopamine drip will be discontinued today. He has been seeing Dr. Robert cardiology regularly. 3 severe hypokalemia and hypercalcemia. Continue IV fluids and electrolyte replacement as indicated. 4 abnormal liver function test: Most likely from hypoperfusion from the severity of the heart block and renal failure. 5 metabolic acidosis secondary to acute kidney injury. Sodium bicarb oral has been added. Continue normal saline. 6 acute cellulitis of the right second finger was treated with Levaquin orally recently. 7 hyperlipidemia: Has been on atorvastatin 20 mg daily. 8 severe thrombocytopenia: Not a clear etiology platelet are downgoing 4000 repeat tomorrow this is could be from sepsis could be from any other abnormality. 9 hypothyroidism: Continue patient on levothyroxine 25 g daily. 10 severe neuropathy: Has been on gabapentin 400 mg daily. 11 hypertension: Patient was on Norvasc and metoprolol not a clear when he is taking his metoprolol last time but will hold off metoprolol for now. 12 GI prophylaxis: We'll continue patient on pantoprazole. 13 DVT prophylaxis: Knee-high LUI hose and early mobilization and avoid heparin drip for now and any anti- coagulation for now. 14 COVID-19 testing in process. CODE STATUS: Full code. Discharge plan: To be determined Impression and plan of care have been directed as dictated by the signing physician. Veda Shaver nurse practitioner acting as scribe for signing physician. Objective - Vital Signs Vital signs: Vital Signs Temp 98.2 F 12/07/19 04:00 Pulse 58 L 12/07/19 07:00 Resp 11 L 12/07/19 07:00 BP 95/45 12/07/19 07:00 Pulse Ox 92 L 12/07/19 07:00 Intake & Output 12/06/19 12/07/19 12/07/19 18:59 06:59 18:59 Intake Total 6.974 787.761 100 Output Total 965 65 Balance 6.974 -177.239 35 Weight 58.967 kg 57.2 kg Intake: IV 775 100 Sodium Chloride 0.9% 1, 775 100 000 ml @ 100 mls/hr IV . Q10H STA Rx#:[id number] Intake, IV Titration 6.974 12.761 Amount DOPamine DRIP 800 mg In 6.974 12.761 Dextrose/Water 1 250ml. bag @ 5 MCG/KG/MIN 5.528 mls/hr IV .Q24H ONE Rx#: [id number] Output: Urine 965 65 Other: Voiding Method Indwelling Catheter - Labs CBC & Chem 7: 12/07/19 04:38 12/07/19 04:38 Labs: Abnormal Lab Results - Last 24 Hours (Table) 12/06/19 12/06/1912/05/20 Range/Units 16:41 16:41 16:41 RBC 3.99 L (4.30-5.90) m/uL Plt Count 94 L (150-450) k/uL PT 12.1 H (9.0-12.0) sec INR 1.2 H (<1.2) APTT 21.9 L (22.0-30.0) sec Sodium 136 L (137-145) mmol/L Potassium 5.9 H (3.5-5.1) mmol/L Carbon Dioxide (22-30) mmol/L BUN 105 H* (9-20) mg/dL Creatinine 3.65 H (0.66-1.25) mg/dL Glucose (74-99) mg/dL POC Glucose (mg/dL) (75-99) mg/dL Calcium 10.4 H (8.4-10.2) mg/dL Phosphorus (2.5-4.5) mg/dL AST 76 H (17-59) U/L ALT 84 H (4-49) U/L Urine Protein (Negative) Urine Blood (Negative) Ur Leukocyte Esterase (Negative) Urine RBC (0-5) /hpf Urine WBC (0-5) /hpf Hyaline Casts (0-2) /lpf Urine Mucus (None) /hpf 12/06/19 12/06/19 12/07/19 Range/Units 20:59 22:40 01:24 RBC (4.30-5.90) m/uL Plt Count (150-450) k/uL PT (9.0-12.0) sec INR (<1.2) APTT (22.0-30.0) sec Sodium 136 L (137-145) mmol/L Potassium 5.4 H (3.5-5.1) mmol/L Carbon Dioxide 20 L (22-30) mmol/L BUN 100 H (9-20) mg/dL Creatinine 3.48 H (0.66-1.25) mg/dL Glucose 139 H (74-99) mg/dL POC Glucose (mg/dL) 124 H (75-99) mg/dL Calcium (8.4-10.2) mg/dL Phosphorus (2.5-4.5) mg/dL AST 67 H (17-59) U/L ALT 74 H (4-49) U/L Urine Protein Trace H (Negative) Urine Blood Moderate H (Negative) Ur Leukocyte Esterase Small H (Negative) Urine RBC 41 H (0-5) /hpf Urine WBC 7 H (0-5) /hpf Hyaline Casts 3 H (0-2) /lpf Urine Mucus Rare H (None) /hpf 12/07/19 12/07/19 Range/Units 04:38 04:38 RBC 3.99 L (4.30-5.90) m/uL Plt Count 86 L (150-450) k/uL PT (9.0-12.0) sec INR (<1.2) APTT (22.0-30.0) sec Sodium (137-145) mmol/L Potassium (3.5-5.1) mmol/L Carbon Dioxide 21 L (22-30) mmol/L BUN 99 H (9-20) mg/dL Creatinine 2.81 H (0.66-1.25) mg/dL Glucose 105 H (74-99) mg/dL POC Glucose (mg/dL) (75-99) mg/dL Calcium (8.4-10.2) mg/dL Phosphorus 5.4 H (2.5-4.5) mg/dL AST (17-59) U/L ALT (4-49) U/L Urine Protein (Negative) Urine Blood (Negative) Ur Leukocyte Esterase (Negative) Urine RBC (0-5) /hpf Urine WBC (0-5) /hpf Hyaline Casts (0-2) /lpf Urine Mucus (None) /hpf
--- NOTE | 2019-12-07 15:28 | P.CNPUL ---
History of Present Illness Consult date: 12/07/19 Requesting physician: Héctor Diaz Chief complaint: Bradycardia, acute kidney injury History of present illness: 84-year-old white male patient of Dr. 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 He came in to the emergency department per EMS on 12/06/2019 for evaluation of generalized weakness and bradycardia. Patient was transferred from an outside hospital, he was in junctional bradycardia, his lab work revealed evidence of acute renal injury and hyperkalemia. Hyperkalemia was treated at the transferring facility and lab work at this hospital on arrival showed potassium level of 5.9. White blood cell count was 8.0, hemoglobin is 13.2, INR is 1.2, sodium is 136, chloride is 103, CO2 is 20, BUN was 100, creatinine was 3.48, patient was given a liter in fluid bolus, currently his IV fluids infusing at 100 ML per hour, with 0.9 normal saline. Troponin was 0.027, TSH was within normal limits at 1.660. EKG in the emergency department showed atrial fibrillation with slow ventricular response with a rate of 38 BPM. Patient was given IV fluids, dopamine was started and is currently infusing at 6 mics per kilo per minute. Heart rate has improved, and current heart rate is 53-66 BPM. In the emergency department serum potassium of 5.9 was again treated with 50% dextrose, regular insulin, and this morning's lab work shows serum potassium of 4.9. Current blood pressure is 132/62, no fever or chills, patient is currently on 2 L of oxygen daily denies any shortness of breath. Salgado catheter is in place patient is producing 65-100 ML per hour. Patient is tolerating oral intake, he denies any nausea vomiting or diarrhea at home. Review of Systems All systems: negative Constitutional: Reports fatigue, Reports weakness, Denies chills, Denies fever Eyes: denies blurred vision, denies pain Ears, nose, mouth and throat: Denies headache, Denies sore throat Cardiovascular: Reports lightheadedness, Denies chest pain, Denies shortness of breath Respiratory: Reports dyspnea, Denies cough Gastrointestinal: Denies abdominal pain, Denies diarrhea, Denies nausea, Denies vomiting Musculoskeletal: Denies myalgias Integumentary: Denies pruritus, Denies rash Neurological: Denies numbness, Denies weakness Psychiatric: Denies anxiety, Denies depression Endocrine: Denies fatigue, Denies weight change Past Medical History Past Medical History: Eye Disorder, GERD/Reflux, Hyperlipidemia, Hypertension, Osteoarthritis (OA), Prostate Disorder, Thyroid Disorder Additional Past Medical History / Comment(s): HIATAL HERNIA, gluacoma History of Any Multi-Drug Resistant Organisms: None Reported Past Surgical History: Appendectomy, Heart Catheterization, Hernia Repair Additional Past Surgical History / Comment(s): BARBRA CATARACT, bowel surgery bowel was twisted Past Anesthesia/Blood Transfusion Reactions: No Reported Reaction Past Psychological History: No Psychological Hx Reported Smoking Status: Never smoker - Past Family History Mother Family Medical History: No Reported History Medications and Allergies Home Medications Medication Instructions Recorded Confirmed Type Gabapentin 400 mg PO BID 05/10/14 12/06/19 History Latanoprost Ophth [Xalatan 0.005%] 1 drop BOTH EYES HS 05/10/14 12/06/19 History Levothyroxine Sodium [Synthroid] 25 mcg PO DAILY 05/10/14 12/06/19 History Ascorbic Acid [Vitamin C] 1,000 mg PO DAILY 05/02/15 12/06/19 History Ca/D3/Mag/Zinc/Walker/Ed/Mgbor 1 tab PO BID 05/02/15 12/06/19 History [Caltrate 600+D3+Min Chew Tab] Cholecalciferol [Vitamin D3] 1,000 unit PO DAILY 05/02/15 12/06/19 History Cyanocobalamin [Vitamin B-12] 500 mcg PO DAILY 05/02/15 12/06/19 History Fish Oil/Dha/Epa [Fish Oil 1,200 1 tab PO DAILY 05/02/15 12/06/19 History mg Fish Oil] Glucosamine Sulfate 500 mg PO DAILY 05/02/15 12/06/19 History Isosorbide Mononitrate ER [Imdur] 30 mg PO DAILY 90 Days tab 05/03/15 12/06/19 Rx Metoprolol Tartrate [Lopressor] 25 mg PO BID #180 tablet 05/03/15 12/06/19 Rx Atorvastatin [Lipitor] 20 mg PO HS 04/16/16 12/06/19 History Acetaminophen [Tylenol Extra 1,000 mg PO Q8H PRN 12/06/19 12/06/19 History Strength] Levofloxacin 500 mg PO DAILY 12/06/19 12/06/19 History Lysine [l-Lysine] 500 mg PO DAILY 12/06/19 12/06/19 History Naproxen Sodium [Aleve] 220 mg PO BID 12/06/19 12/06/19 History Omeprazole 20 mg PO BID 12/06/19 12/06/19 History Tamsulosin [Flomax] 0.4 mg PO DAILY 12/06/19 12/06/19 History Ultimate Colon Care Formula 1 cap PO TID 12/06/19 12/06/19 History amLODIPine [Norvasc] 2.5 mg PO DAILY 12/06/19 12/06/19 History Allergies Allergy/AdvReac Type Severity Reaction Status Date / Time Penicillins Allergy Rash/Hives Verified 12/06/19 17:51 celecoxib [From Celebrex] AdvReac bp and Verified 12/06/19 17:51 heart rate went low when taken with bactrim sulfamethoxazole AdvReac bp and Verified 12/06/19 17:51 [From Bactrim] heart rate went low when taken with celebrex trimethoprim [From Bactrim] AdvReac bp and Verified 12/06/19 17:51 heart rate went low when taken with celebrex Physical Exam Vitals: Vital Signs Temp Pulse Resp BP Pulse Ox 12/07/19 13:00 66 15 12/07/19 12:00 97.1 F L 53 L 8 L 132/62 12/07/19 11:00 56 L 6 L 117/73 12/07/19 10:00 60 14 131/112 12/07/19 09:00 64 29 H 162/97 98 12/07/19 08:00 96.8 F L 65 14 149/77 94 L 12/07/19 07:00 58 L 11 L 95/45 92 L 12/07/19 06:30 56 L 9 L 139/69 94 L 12/07/19 06:00 58 L 12 126/66 95 12/07/19 05:30 57 L 10 L 149/77 99 12/07/19 05:00 57 L 12 135/64 93 L 12/07/19 04:30 59 L 17 149/73 95 12/07/19 04:00 98.2 F 57 L 12 143/78 93 L 12/07/19 03:30 61 11 L 145/75 93 L 12/07/19 03:00 65 18 133/67 92 L 12/07/19 02:30 55 L 14 134/85 97 12/07/19 02:00 60 16 138/97 95 12/07/19 01:30 62 15 138/73 94 L 12/07/19 01:00 55 L 12 125/62 94 L 12/07/19 00:38 96 12/07/19 00:30 56 L 14 145/77 94 L 12/07/19 00:00 98 F 58 L 12 147/70 93 L 12/06/19 23:30 60 22 161/97 92 L 12/06/19 23:00 97.8 F 45 L 10 L 140/63 93 L 12/06/19 22:41 97.7 F 52 L 18 115/61 97 12/06/19 22:04 97.9 F 56 L 18 122/61 97 12/06/19 20:36 55 L 16 91/52 96 12/06/19 18:38 44 L 16 85/55 96 12/06/19 16:27 97.9 F 36 L 16 110/64 97 Intake and Output 12/07/19 12/07/19 12/07/19 06:59 14:59 22:59 Intake Total 775 892.868 Output Total 465 600 Balance 310 292.868 Intake: IV 775 800 Sodium Chloride 0.9% 1, 775 800 000 ml @ 100 mls/hr IV . Q10H [facility] Rx#:[id number] Intake, IV Titration 92.868 Amount DOPamine DRIP 800 mg In 92.868 Dextrose/Water 1 250ml. bag @ 5 MCG/KG/MIN 5.528 mls/hr IV .Q24H [facility] Rx#: [id number] Output: Urine 465 600 Other: Voiding Method Indwelling Catheter Indwelling Catheter Weight 57.2 kg GENERAL EXAM: Alert, very pleasant, 84-year-old white male, on 2 L of oxygen with a pulse ox of 94%, comfortable in no apparent distress. HEAD: Normocephalic/atraumatic. EYES: Normal reaction of pupils, equal size. Conjunctiva pink, sclera white. NOSE: Clear with pink turbinates. THROAT: No erythema or exudates. NECK: No masses, no JVD, no thyroid enlargement, no adenopathy. CHEST: No chest wall deformity. Symmetrical expansion. LUNGS: Equal air entry with no crackles, wheeze, rhonchi or dullness. CVS: Regular rate and rhythm, normal S1 and S2, no gallops, systolic murmur murmur auscultated, no rubs ABDOMEN: Soft, nontender. No hepatosplenomegaly, normal bowel sounds, no guarding or rigidity. EXTREMITIES: No clubbing, no edema, no cyanosis, 2+ pulses and upper and lower extremities. Extensive degenerative joint changes involving proximal and distal interphalangeal joints on both hands MUSCULOSKELETAL: Muscle strength and tone normal. SPINE: No scoliosis or deformity SKIN: Open wound on the second digit on the right hand, shallow, nondraining, 100% granulated CENTRAL NERVOUS SYSTEM: Alert and oriented -3. No focal deficits, tone is normal in all 4 extremities. PSYCHIATRIC: Alert and oriented -3. Appropriate affect. Intact judgment and insight. Results - Laboratory Findings CBC and BMP: 12/07/19 04:38 12/07/19 04:38 PT/INR, D-dimer PT 12.1 sec (9.0-12.0) H 12/06/19 16:41 INR 1.2 (<1.2) H 12/06/19 16:41 Abnormal lab findings: Abnormal Labs 12/06/19 12/06/19 12/06/19 16:41 16:41 16:41 RBC 3.99 L Plt Count 94 L PT 12.1 H INR 1.2 H APTT 21.9 L Sodium 136 L Potassium 5.9 H Carbon Dioxide BUN 105 H* Creatinine 3.65 H Glucose POC Glucose (mg/dL) Calcium 10.4 H Phosphorus AST 76 H ALT 84 H Urine Protein Urine Blood Ur Leukocyte Esterase Urine RBC Urine WBC Hyaline Casts Urine Mucus 12/06/19 12/06/19 12/07/19 20:59 22:40 01:24 RBC Plt Count PT INR APTT Sodium 136 L Potassium 5.4 H Carbon Dioxide 20 L BUN 100 H Creatinine 3.48 H Glucose 139 H POC Glucose (mg/dL) 124 H Calcium Phosphorus AST 67 H ALT 74 H Urine Protein Trace H Urine Blood Moderate H Ur Leukocyte Esterase Small H Urine RBC 41 H Urine WBC 7 H Hyaline Casts 3 H Urine Mucus Rare H 12/07/19 12/07/19 04:38 04:38 RBC 3.99 L Plt Count 86 L PT INR APTT Sodium Potassium Carbon Dioxide 21 L BUN 99 H Creatinine 2.81 H Glucose 105 H POC Glucose (mg/dL) Calcium Phosphorus 5.4 H AST ALT Urine Protein Urine Blood Ur Leukocyte Esterase Urine RBC Urine WBC Hyaline Casts Urine Mucus - Diagnostic Findings Chest x-ray: report reviewed, image reviewed Additional studies: EKG reviewed, ultrasound of the kidneys reviewed showing no hydronephrosis Assessment and Plan Plan: Assessment: #1. Symptomatic junctional bradycardia, possibly related to hypokalemia and acute kidney injury. #2. Hyperkalemia related to acute kidney injury and nonsteroidal agent use, recovered #3. Acute kidney injury, nephrology is following. Improved with hydration #4. Hypertension #5. Non-anion gap metabolic acidosis improving #6. Wound infection on the right second digit of the right hand, recently treated with antibiotics #7. Glaucoma #8. Degenerative joint arthritis #9. Hyperlipidemia #10. BPH on Flomax #11. Hypothyroidism #12. Lifetime nonsmoker Plan: Continue IV fluids at a current rate, wean dopamine drip, ultrasound of the kidneys shows no hydronephrosis, patient denies any nausea vomiting no diarrhea, renal profile slightly improved on today's labs, hyperkalemia has resolved, heart rate has improved, cardiology has been consulted, echocardiogram is p ending. he is tolerating oral intake, he denies any chest pain, denies any shortness of breath. We'll continue to monitor the patient in the intensive care unit, will follow I performed a history & physical examination of the patient and discussed their management with my nurse practitioner, Susan Kelley. I reviewed the nurse practitioner's note and agree with the documented findings and plan of care. Lung sounds are positive for clear breath sounds. The findings and the impression was discussed with the patient. I attest to the documentation by the nurse practitioner. Time with Patient: Greater than 30
--- NOTE | 2019-12-07 17:14 | PN ---
PROGRESS NOTE FOLLOW-UP NOTE: Hugh is an 84-year-old gentleman who is admitted to hospital with symptomatic bradycardia secondary to hyperkalemia. This morning he is in sinus rhythm with a heart rate of 60 beats per minute. He is feeling much better. PHYSICAL EXAMINATION: Blood pressure is 150/90, respiratory is 18. Chest exam reveals good air entry bilaterally. Heart exam reveals first and second heart sounds. No gallop. Examination of extremities did not reveal any edema. LABS: Labs show potassium of 4.8, BUN is 99, creatinine is 2.8. Hemoglobin is 13.2. ASSESSMENT: 1. Symptomatic junctional bradycardia secondary to hyperkalemia. 2. Acute renal failure. PLAN: I will continue with the IV fluids, obtain a 2D echo, discontinue beta blockers, and I will stop the dopamine at this time. MMODL / IJN: [id number] /
[2019-12-07] MEDS: LATANOPROST 0.005% OPHTH DROPS 2.5 ML BTL BOTH EYES SCH (20:59)
[2019-12-07] MEDS: amLODIPine 2.5 MG TAB PO SCH (21:00)
[2019-12-07] MEDS ORDERED: [UNRECOGNIZED DRUG - OTHER] PO SCH (21:00)
[2019-12-07] MEDS: ISOSORBIDE MONONITRATE ER 30 MG TAB.ER.24H PO SCH (21:02)
[2019-12-07] MEDS: GABAPENTIN 400 MG CAP PO SCH (21:02)
[2019-12-07] MEDS: ATORVASTATIN 20 MG TAB PO SCH (21:02)
[2019-12-07] MEDS: TAMSULOSIN 0.4 MG CAP.ER.24H PO SCH (21:05)
[2019-12-08] MEDS: SODIUM CHLORIDE 0.9% 1,000 ML IV SCH ×2 (03:51→16:23)
[2019-12-08 05:59] LABS: Basophils % (A) 0 %; Eosinophils # (A) 0.2 k/uL (0-0.7); Eosinophils % (A) 6 %; HCT 35.3 % (39.0-53.0); HGB 11.6 gm/dL (13.0-17.5); Lymphocytes # (A) 0.9 k/uL (1.0-4.8); Lymphocytes % (A) 23 %; MCH 32.9 pg (25.0-35.0); MCHC 32.9 g/dL (31.0-37.0); MCV 99.9 fL (80.0-100.0); Mean Platelet Volume 8.4; Monocytes # (A) 0.3 k/uL (0-1.0); Monocytes % (A) 8 %; Neutrophils # (A) 2.3 k/uL (1.3-7.7); Neutrophils % (A) 61 %; RBC 3.53 m/uL (4.30-5.90); RDW 13.1 % (11.5-15.5); WBC 3.7 k/uL (3.8-10.6)
[2019-12-08 06:02] LABS: Platelet Count 72 k/uL (150-450)
[2019-12-08 06:15] LABS: Calcium 8.4 mg/dL (8.4-10.2); Potassium 4.1 mmol/L (3.5-5.1)
[2019-12-08] MEDS: PANTOPRAZOLE 40 MG TABLET PO SCH (07:02)
[2019-12-08] MEDS: LEVOTHYROXINE 25 MCG TAB PO SCH (07:02)
--- NOTE | 2019-12-08 07:12 | ECHOF ---
Referral Reason:heart block MEASUREMENTS -------- HEIGHT: 170.2 cm WEIGHT: 57.2 kg BP: 131/112 RVIDd: 3.7 cm (< 3.3) IVSd: 1.3 cm (0.6 - 1.1) LVIDd: 3.2 cm (3.9 - 5.3) LVPWd: 1.2 cm (0.6 - 1.1) IVSs: 1.6 cm LVIDs: 1.5 cm LVPWs: 1.8 cm LAESV Index (A-L): 33.84 ml/m Ao Diam: 2.2 cm (2.0 - 3.7) AV Cusp: 1.3 cm (1.5 - 2.6) MV EXCURSION: 21.150 mm (> 18.000) MV EF SLOPE: 39 mm/s (70 - 150) EPSS: 0.3 cm MV E López: 0.91 m/s MV DecT: 178 ms MV A López: 0.60 m/s MV E/A Ratio: 1.50 RAP: 5.00 mmHg RVSP: 57.49 mmHg FINDINGS -------- This was a technically adequate study. The left ventricular size is normal. There is mild concentric left ventricular hypertrophy. Overa ll left ventricular systolic function is low-normal with, an EF between 50 - 55 %. Mitral Doppler i nflow pattern suggests diastolic filling abnormality {E/E'}. The right ventricle is mildly enlarged. LA is midly dilated 29-33ml/m2. The right atrium is mildly enlarged. Interatrial and interventricular septum intact. There is moderate aortic valve sclerosis. There is no evidence of aortic regurgitation. There is no evidence of aortic stenosis. Mild mitral annular calcification present. Mild mitral regurgitation is present. Moderate to severe tricuspid regurgitation present. There is moderate to severe pulmonary hypertens ion. The right ventricular systolic pressure, as measured by Doppler, is 57.49mmHg. Trace/mild (physiologic) pulmonic regurgitation. The aortic root size is normal. IVC Not well visulized. There is no pericardial effusion. CONCLUSIONS -------- 1. This was a technically adequate study. 2. The left ventricular size is normal. 3. There is mild concentric left ventricular hypertrophy. 4. Overall left ventricular systolic function is low-normal with, an EF between 50 - 55 %. 5. Mitral Doppler inflow pattern suggest diastolic filling abnormality {E/E'}. 6. The right ventricle is mildly enlarged. 7. LA is midly dilated 29-33ml/m2. 8. The right atrium is mildly enlarged. 9. Interatrial and interventricular septum intact. 10. There is moderate aortic valve sclerosis. 11. There is no evidence of aortic regurgitation. 12. There is no evidence of aortic stenosis. 13. Mild mitral annular calcification present. 14. Mild mitral regurgitation is present. 15. Moderate to severe tricuspid regurgitation present. 16. There is moderate to severe pulmonary hypertension. 17. The right ventricular systolic pressure, as measured by Doppler, is 57.49mmHg. 18. Trace/mild (physiologic) pulmonic regurgitation. 19. The aortic root size is normal. 20. IVC Not well visulized. 21. There is no pericardial effusion. WAREHOUSE HANDLER: Rosalie Cerrato RDCS
[2019-12-08] MEDS: ISOSORBIDE MONONITRATE ER 30 MG TAB.ER.24H PO SCH (09:07)
[2019-12-08] MEDS: CHOLECALCIFEROL 1,000 UNIT TAB PO SCH (09:07)
[2019-12-08] MEDS: TAMSULOSIN 0.4 MG CAP.ER.24H PO SCH (09:07)
[2019-12-08] MEDS: amLODIPine 2.5 MG TAB PO SCH (09:07)
[2019-12-08] MEDS: ASCORBIC ACID 500 MG TAB PO SCH (09:07)
[2019-12-08] MEDS: CYANOCOBALAMIN 500 MCG TAB PO SCH (09:07)
--- NOTE | 2019-12-08 09:27 | P.PN ---
Subjective Patient is seen in follow for acute kidney injury. Renal function is improving. Good urine output. Dopamine discontinued. No chest pain or shortness breath. Oral intake fair. Vital signs are stable. General: The patient appeared well nourished and normally developed. HEENT: Head exam is unremarkable. Neck is without jugular venous distension. LUNGS: Lungs are clear to auscultation and percussion. Breath sounds decreased. HEART: Rate and Rhythm are regular. ABDOMEN: Soft, nontender. EXTREMITITES: No edema. Objective - Vital Signs Vital signs: Vital Signs Temp 97.6 F 12/08/19 08:00 Pulse 64 12/08/19 09:00 Resp 11 L 12/08/19 09:00 BP 125/71 12/08/19 09:00 Pulse Ox 96 12/08/19 07:00 Intake & Output 12/07/19 12/08/19 12/08/19 18:59 06:59 18:59 Intake Total 2254.381 9277 422 Output Total 790 770 175 Balance 402.868 352 247 Weight 58.2 kg Intake: IV 800 Sodium Chloride 0.9% 1, 800 000 ml @ 100 mls/hr IV . Q10H [facility] Rx#:[id number] Intake, IV Titration 392.868 900 200 Amount DOPamine DRIP 800 mg In 92.868 Dextrose/Water 1 250ml. bag @ 5 MCG/KG/MIN 5.528 mls/hr IV .Q24H [facility] Rx#: [id number] Sodium Chloride 0.9% 1, 300 900 200 000 ml @ 50 mls/hr IV . Q20H [facility] Rx#:[id number] Oral 222 222 Output: Urine 790 770 175 Other: Voiding Method Indwelling Catheter Indwelling Catheter # Bowel Movements 1 - Labs CBC & Chem 7: 12/08/19 05:20 12/08/19 05:20 Labs: Abnormal Lab Results - Last 24 Hours (Table) 12/08/19 12/08/19 Range/Units 05:20 05:20 WBC 3.7 L (3.8-10.6) k/uL RBC 3.53 L (4.30-5.90) m/uL Hgb 11.6 L (13.0-17.5) gm/dL Hct 35.3 L (39.0-53.0) % Plt Count 72 L (150-450) k/uL Lymphocytes # 0.9 L (1.0-4.8) k/uL Chloride 111 H (98-107) mmol/L BUN 71 H (9-20) mg/dL Creatinine 1.52 H (0.66-1.25) mg/dL Assessment and Plan Plan: Assessment: 1. Acute kidney injury mostly prerenal secondary to hemodynamic inst ability/bradycardia. Creatinine was 3.65 on admission and is 1.52 today. Baseline creatinine from November 2017 near 1. Trace proteinuria on UA. no hydronephrosis noted a kidney ultrasound however both kidneys are small in size. 2. Junctional bradycardia, resolved. Currently on dopamine. Cardiology following. Doubt due to hyperkalemia as potassium level was only mildly elevated. 3. Hyperkalemia secondary to acute kidney injury, nonsteroidals and metabolic acidosis. Resolved. 4. Benign hypertension. Currently stable. 5. Metabolic acidosis secondary to acute kidney injury, improved. 6. 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 Plan: I will decrease rate of normal saline to 50 mL an hour - can heplock this evening. Continue to monitor renal function and urine output.
[2019-12-08] MEDS: GABAPENTIN 400 MG CAP PO SCH ×2 (09:45→20:40)
--- NOTE | 2019-12-08 11:22 | P.PN ---
Subjective Progress Note Date: 12/08/19 84-year-old male one of Dr. Turcios's patient who was in the office 2 weeks ago for second finger infection of the right hand was treated with oral antibiotic without improvement ended up having another antibiotics orally according to 's and has done slightly but better with it. 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 Patient ended up going to the emergency department and [facility] where was found to be in acute renal failure with significant hyperkalemia and found to have severe bradycardia with junctional rhythm with pulse rate running in the 40s. Not a clear with of the acute renal failure happen first or the heart block causing hypoperfusion and renal failure is the reason. Patient ended up having transcutaneous pacer was started on hydration consult nephrology will be admitted to the ICU the rest of his lab value with the bun up to 105 creatinine 2.65 his calcium was 10.4 potassium 5.9. Patient will be seen cardiology and nephrology slightly elevated liver function tests most likely from hypoperfusion as well. 12/06: Patient remains in the intensive care unit. He has been in a sinus rhythm and heart rate is running in the 50s and 60s. He was seen by cardiology and started on dopamine drip for bradycardia. Beta alonzo on hold. Echocardiogram is currently pending. Blood pressure 149/77, pulse ox 94% on 2 L. He is currently on IV fluids 100 mL per hour. He has had good urine output. He is eating without nausea or vomiting. He continues to have significant weakness. Renal ultrasound reveals no hydronephrosis. Benign cyst on either side. Limited visualization of portions of the right kidney. He has a Salgado catheter in place. Repeat lab work reveals improvement of his renal function through the night. Currently BUN is 99 and creatinine 2.81. Potassium 4.8, hemoglobin 13.2. Phosphorus is 5.4. TSH 1.660. Urinalysis clear with blood moderate, leukoesterase small, RBCs 41, WBC 7. 12/07: Patient remains in the intensive care unit. Lab work is significantly improved. WBC is 3.7, hemoglobin 11.6, platelet count 72. BUN 71 and creatinine 1.52. Sodium 138, potassium 4.1, chloride 111, CO2 23. Patient had episodes of junctional rhythm during the night. Cardiology has seen the patient the morning and cleared him for transfer to cardiac stepdown unit. Patient has been afebrile, heart rate in the 60s and 70s, blood pressure 125/71. Nephrology has decreased IV fluids to 50 mL per hour. IV to be hep-locked this evening. Echocardiogram reveals EF of 55% with mild concentric left ventricular hypertrophy, moderate aortic valve sclerosis, mild mitral regurgitation, moderate to severe tricuspid regurgitation, moderate to severe pulmonary hypertension. Review of Systems CONSTITUTIONAL: Well-developed no acute respiratory distress. Denies lighthea dedness or dizziness. EYES: No icterus sclerae, no conjunctivitis. EARS, NOSE, MOUTH, THROAT, and FACE: No sore throat, lymphadenopathy, carotid bruits or deformity. RESPIRATORY: Mild shortness of breath. CARDIOVASCULAR: Severe bradycardia improved with PND orthopnea and palpitation. GASTROINTESTINAL: Abdominal pain with nausea no vomiting. GENITOURINARY: Decrease urine output with acute renal failure. INTEGUMENT/BREAST: Negative for any muscular injury with mild osteoarthritis.. HEMATOLOGIC/LYMPHATIC: Negative for bleed or purpura. MUSCULOSKELTAL: Negative for Myalgia or arthralgia. NEURLOGICAL: Presyncope generalized weakness and worsening dementia. BEHAVIORAL/PSYCH: Negative. ENDOCRINE: Negative. Physical examination General Appearance: Alert, cooperative, no distress, appears stated age. Neck HEENT: Supple, no lymphadenopathy, no thyroid enlargement, no carotid bruits. Lungs: Decreased breath some bilateral fine rhonchi. No crackles mild expirato ry wheezes. Chest Wall: Decrease expansion with deep inspiration no tenderness and no deformity was found on exam, no costochondral pain or discomfort. Heart: Irregular rate and rhythm, S1, S2 possible history positive JVD with severe bradycardia and arrhythmia with systolic murmur. Back: Symmetric, no curvature, ROM normal, no CVA tenderness. Abdomen: Soft, non-tender, bowel sounds active all four quadrants, no masses, no organomegaly. Salgado catheter draining clear dai urine. Extremities: Severe advance arthralgia look like severe osteoarthritis with mild healing cellulitis and small ulcer area on the second finger on the right side. Pulses: 2+ and symmetric. Skin: Skin color, texture, tugor normal, no rashes or lesions. Neurologic: Alert oriented with severe confusion moving all his 4 extremities generalized weakness no focal deficit. Assessment and plan 1 acute renal failure, acute tubular necrosis from hypoperfusion possibly from severe bradycardia and junctional rhythm. IV fluids 50 cc per hour. Consult with nephrology appreciated. No hydronephrosis noted on ultrasound. Continue to monitor renal function, I&O 2 severe bradycardia with sick sinus syndrome and junctional rhythm, improving. Etiology consult appreciated. Patient is off dopamine drip. He has been seeing Dr. Robert cardiology regularly. 3 severe hypokalemia and hypercalcemia. Continue IV fluids and electrolyte replacement as indicated. 4 abnormal liver function test: Most likely from hypoperfusion from the severity of the heart block and renal failure. 5 metabolic acidosis secondary to acute kidney injury. 6 acute cellulitis of the right second finger was treated with Levaquin orally recently. 7 hyperlipidemia: Has been on atorvastatin 20 mg daily. 8 severe thrombocytopenia: Not a clear etiology. 9 hypothyroidism: Continue patient on levothyroxine 25 g daily. 10 severe neuropathy: Has been on gabapentin 400 mg daily. 11 hypertension: Patient was on Norvasc and metoprolol not a clear when he is taking his metoprolol last time but will hold off metoprolol for now. 12 GI prophylaxis: We'll continue patient on pantoprazole. 13 DVT prophylaxis: Knee-high LUI hose and early mobilization and avoid heparin drip for now and any anti- coagulation for now. 14 COVID-19 infection not present. CODE STATUS: Full code. Discharge plan: To be determined Impression and plan of care have been directed as dictated by the signing physician. Veda Shaver nurse practitioner acting as scribe for signing physician. Objective - Vital Signs Vital signs: Vital Signs Temp 97.6 F 12/08/19 08:00 Pulse 64 12/08/19 09:00 Resp 11 L 12/08/19 09:00 BP 125/71 12/08/19 09:00 Pulse Ox 96 12/08/19 07:00 Intake & Output 12/07/19 12/08/19 12/08/19 18:59 06:59 18:59 Intake Total 6816.077 6685 75 Output Total 790 770 55 Balance 402.868 352 20 Weight 58.2 kg Intake: IV 800 Sodium Chloride 0.9% 1, 800 000 ml @ 100 mls/hr IV . Q10H [facility] Rx#:[id number] Intake, IV Titration 392.868 900 75 Amount DOPamine DRIP 800 mg In 92.868 Dextrose/Water 1 250ml. bag @ 5 MCG/KG/MIN 5.528 mls/hr IV .Q24H [facility] Rx#: [id number] Sodium Chloride 0.9% 1, 300 900 75 000 ml @ 75 mls/hr IV . [id number] [facility] Rx#:[id number] Oral 222 Output: Urine 790 770 55 Other: Voiding Method Indwelling Catheter Indwelling Catheter # Bowel Movements 1 - Labs CBC & Chem 7: 12/08/19 05:20 12/08/19 05:20 Labs: Abnormal Lab Results - Last 24 Hours (Table) 12/08/19 12/08/19 Range/Units 05:20 05:20 WBC 3.7 L (3.8-10.6) k/uL RBC 3.53 L (4.30-5.90) m/uL Hgb 11.6 L (13.0-17.5) gm/dL Hct 35.3 L (39.0-53.0) % Plt Count 72 L (150-450) k/uL Lymphocytes # 0.9 L (1.0-4.8) k/uL Chloride 111 H (98-107) mmol/L BUN 71 H (9-20) mg/dL Creatinine 1.52 H (0.66-1.25) mg/dL
--- NOTE | 2019-12-08 15:05 | P.PN ---
Subjective Progress Note Date: 12/08/19 On 12/08/2019 a.m. seeing this patient for a follow-up. Is doing well. No specific complaint. Function continues to improve as the patient is being hydrated with IV fluids. The patient has no significant hyperkalemia with electrode imbalance. Mother the patient was also taken off the dopamine. His I V fluids are running at 50 mL of normal saline infusion. The patient had a single episode of junctional rhythm with a heart rate dropped in the low 50s. We haven't seen any further episodes since and the patient is being monitored and cardiology is evaluating this patient very closely. No plans for pacemaker insertion yet. He has no specific complaints. Is tolerating his diet. No nausea. No vomiting. The diarrhea. No abdominal pain. The ultrasound the kidneys showed no evidence of an hydronephrosis Objective - Vital Signs Vital signs: Vital Signs Temp 96.4 F L 12/08/19 12:00 Pulse 76 12/08/19 13:00 Resp 9 L 12/08/19 13:00 BP 124/80 12/08/19 12:00 Pulse Ox 91 L 12/08/19 13:00 Intake & Output 12/07/19 12/08/19 12/08/19 18:59 06:59 18:59 Intake Total 6212.018 5012 572 Output Total 790 770 300 Balance 402.868 352 272 Weight 58.2 kg Intake: IV 800 Sodium Chloride 0.9% 1, 800 000 ml @ 100 mls/hr IV . Q10H [facility] Rx#:[id number] Intake, IV Titration 392.868 900 350 Amount DOPamine DRIP 800 mg In 92.868 Dextrose/Water 1 250ml. bag @ 5 MCG/KG/MIN 5.528 mls/hr IV .Q24H [facility] Rx#: [id number] Sodium Chloride 0.9% 1, 300 900 350 000 ml @ 50 mls/hr IV . Q20H [facility] Rx#:[id number] Oral 222 222 Output: Urine 790 770 300 Other: Voiding Method Indwelling Catheter Indwelling Catheter Bedside Commode Urinal # Voids 1 # Bowel Movements 1 - Exam GENERAL EXAM: Alert, very pleasant, 84-year-old white male, on 2 L of oxygen with a pulse ox of 94%, comfortable in no apparent distress. HEAD: Normocephalic/atraumatic. EYES: Normal reaction of pupils, equal size. Conjunctiva pink, sclera white. NOSE: Clear with pink turbinates. THROAT: No erythema or exudates. NECK: No masses, no JVD, no thyroid enlargement, no adenopathy. CHEST: No chest wall deformity. Symmetrical expansion. LUNGS: Equal air entry with no crackles, wheeze, rhonchi or dullness. CVS: Regular rate and rhythm, normal S1 and S2, no gallops, systolic murmur murmur auscultated, no rubs ABDOMEN: Soft, nontender. No hepatosplenomegaly, normal bowel sounds, no guarding or rigidity. EXTREMITIES: No clubbing, no edema, no cyanosis, 2+ pulses and upper and lower extremities. Extensive degenerative joint changes involving proximal and distal interphalangeal joints on both hands MUSCULOSKELETAL: Muscle strength and tone normal. SPINE: No scoliosis or deformity SKIN: Open wound on the second digit on the right hand, shallow, nondraining, 100% granulated CENTRAL NERVOUS SYSTEM: Alert and oriented -3. No focal deficits, tone is normal in all 4 extremities. PSYCHIATRIC: Alert and oriented -3. Appropriate affect. Intact judgment and insight. - Labs CBC & Chem 7: 12/08/19 05:20 12/08/19 05:20 Labs: Abnormal Lab Results - Last 24 Hours (Table) 12/08/19 12/08/19 Range/Units 05:20 05:20 WBC 3.7 L (3.8-10.6) k/uL RBC 3.53 L (4.30-5.90) m/uL Hgb 11.6 L (13.0-17.5) gm/dL Hct 35.3 L (39.0-53.0) % Plt Count 72 L (150-450) k/uL Lymphocytes # 0.9 L (1.0-4.8) k/uL Chloride 111 H (98-107) mmol/L BUN 71 H (9-20) mg/dL Creatinine 1.52 H (0.66-1.25) mg/dL Assessment and Plan Plan: #1. Symptomatic junctional bradycardia, possibly related to hypokalemia and acute kidney injury. The patient is improving and cardiac rhythm is back to sinus. He had another brief episodes of junctional rhythm yesterday for a limited period of time and this recovered spontaneously. He is off dopamine infusion for now. #2. Hyperkalemia related to acute kidney injury and nonsteroidal agent use, recovered #3. Acute kidney injury, nephrology is following. Improved with hydration and the patient's creatinine is improving #4. Hypertension #5. Non-anion gap metabolic acidosis improving, improving and the patient's serum bicarb level is normalized #6. Wound infection on the right second digit of the right hand, recently treated with antibiotics #7. Glaucoma #8. Degenerative joint arthritis #9. Hyperlipidemia #10. BPH on Flomax #11. Hypothyroidism #12. Lifetime nonsmoker Plan Continue IV fluids Monitor renal function and the creatinine level is down to 1.5 Monitor potassium level and the level is down to 4.1 Monitor the cardiac rhythm Possible pacemaker insertion of this becomes a recurrent issue The patient is off dopamine for now Advance diet and the patient is tolerating his oral intake Discontinue the Salgado catheter Possible transferred to selective units.
[2019-12-08] MEDS ORDERED: CALCIUM CARBONATE 500 MG CHEWABLE PO PRN (20:07)
[2019-12-08] MEDS: ATORVASTATIN 20 MG TAB PO SCH (20:39)
[2019-12-08] MEDS: LATANOPROST 0.005% OPHTH DROPS 2.5 ML BTL BOTH EYES SCH (20:40)
--- NOTE | 2019-12-08 21:16 | PN ---
PROGRESS NOTE FOLLOW-UP NOTE: This patient is an 84-year-old gentleman who is admitted to hospital with junctional bradycardia secondary to renal failure and hyperkalemia. This morning he remains in sinus rhythm. Hyperkalemia has resolved. Renal functions are getting better. On exam, heart rate is 64 beats per minute. Blood pressure is 140/82, respiratory rate is 18. Oxygen saturation is 98% on 2 L. There is no jugular venous distention. Chest exam reveals good air entry bilaterally. Heart exam reveals first and second heart sounds. No gallop. Abdomen is soft. Examination of extremities did not reveal any edema. Peripheral pulses are felt. ASSESSMENT: Junctional bradycardia secondary to hyperkalemia and renal failure. The patient had an echo on this admission that revealed normal LV function, aortic sclerosis without significant stenosis and pulmonary hypertension. The patient will continue current medications, including Norvasc, Lipitor, Imdur. Will increase the dose of Norvasc if necessary for blood pressure control. MMODL / IJN: [id number] /
[2019-12-09 06:15] LABS: Basophils % (A) 0 %; Eosinophils # (A) 0.2 k/uL (0-0.7); Eosinophils % (A) 4 %; HGB 12.6 gm/dL (13.0-17.5); Lymphocytes # (A) 1.1 k/uL (1.0-4.8); Lymphocytes % (A) 23 %; MCH 31.1 pg (25.0-35.0); MCHC 31.6 g/dL (31.0-37.0); MCV 98.4 fL (80.0-100.0); Mean Platelet Volume 8.2; Monocytes # (A) 0.3 k/uL (0-1.0); Monocytes % (A) 6 %; Neutrophils # (A) 3.1 k/uL (1.3-7.7); Neutrophils % (A) 65 %; RBC 4.07 m/uL (4.30-5.90); WBC 4.8 k/uL (3.8-10.6)
[2019-12-09 06:27] LABS: Platelet Count 86 k/uL (150-450)
[2019-12-09 06:33] LABS: Calcium 9.4 mg/dL (8.4-10.2)
[2019-12-09] MEDS: LEVOTHYROXINE 25 MCG TAB PO SCH (06:44)
[2019-12-09] MEDS: PANTOPRAZOLE 40 MG TABLET PO SCH (06:44)
--- NOTE | 2019-12-09 08:34 | P.PN ---
Subjective Patient is seen in follow for acute kidney injury. Renal function is improving. Good urine output. Remains off vasopressors. No chest pain or shortness breath. Oral intake fair. Complains of constipation. Vital signs are stable. General: The patient appeared well nourished and normally developed. HEENT: Head exam is unremarkable. Neck is without jugular venous distension. LUNGS: Lungs are clear to auscultation and percussion. Breath sounds decreased. HEART: Rate and Rhythm are regular. ABDOMEN: Soft, nontender. EXTREMITITES: No edema. Objective - Vital Signs Vital signs: Vital Signs Temp 98.0 F 12/09/19 04:00 Pulse 86 12/09/19 08:01 Resp 12 12/09/19 08:01 BP 169/90 12/09/19 08:01 Pulse Ox 97 12/09/19 04:00 Intake & Output 12/08/19 12/09/19 12/09/19 18:59 06:59 18:59 Intake Total 572 550 Output Total 300 700 100 Balance 272 -150 -100 Weight 60.2 kg Intake: Intake, IV Titration 350 50 Amount Sodium Chloride 0.9% 1, 350 50 000 ml @ 50 mls/hr IV . Q20H [facility] Rx#:[id number] Oral 222 500 Output: Urine 300 700 100 Other: Voiding Method Bedside Commode Bedside Commode Urinal Urinal # Voids 1 - Labs CBC & Chem 7: 12/09/19 05:37 12/09/19 05:37 Labs: Abnormal Lab Results - Last 24 Hours (Table) 12/09/19 12/09/19 Range/Units 05:37 05:37 RBC 4.07 L (4.30-5.90) m/uL Hgb 12.6 L (13.0-17.5) gm/dL Plt Count 86 L (150-450) k/uL Chloride 109 H (98-107) mmol/L BUN 50 H (9-20) mg/dL Glucose 115 H (74-99) mg/dL Assessment and Plan Plan: Assessment: 1. Acute kidney injury mostly prerenal secondary to hemodynamic instability/bradycardia. Creatinine was 3.65 on admission and is 1.17 today. Baseline creatinine from November 2017 near 1. Trace proteinuria on UA. no hydronephrosis noted a kidney ultrasound however both kidneys are small in size. 2. Junctional bradycardia, resolved. s/p dopamine. Cardiology following. Doubt due to hyperkalemia as potassium level was only mildly elevated. 3. Hyperkalemia secondary to acute kidney injury, nonsteroidals and metabolic acidosis. Resolved. 4. Benign hypertension. Currently stable. 5. Metabolic acidosis secondary to acute kidney injury, improved. 6. 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 Plan: Hep-Lock IV fluids. Lactulose as needed for constipation. Continue to monitor renal function and urine output.
[2019-12-09] MEDS: ASCORBIC ACID 500 MG TAB PO SCH (09:43)
[2019-12-09] MEDS: GABAPENTIN 400 MG CAP PO SCH ×2 (09:43→20:14)
[2019-12-09] MEDS: ISOSORBIDE MONONITRATE ER 30 MG TAB.ER.24H PO SCH (09:43)
[2019-12-09] MEDS: CYANOCOBALAMIN 500 MCG TAB PO SCH (09:44)
[2019-12-09] MEDS: TAMSULOSIN 0.4 MG CAP.ER.24H PO SCH (09:44)
[2019-12-09] MEDS: CHOLECALCIFEROL 1,000 UNIT TAB PO SCH (09:44)
[2019-12-09] MEDS: amLODIPine 10 MG TAB PO SCH (09:44)
[2019-12-09] MEDS: LACTULOSE 20 GM/30 ML CUP PO PRN (09:48)
[2019-12-09] MEDS ORDERED: SENNOSIDES-DOCUSATE SODIUM 1 EACH TAB PO PRN (12:10)
--- NOTE | 2019-12-09 12:28 | P.PN ---
Subjective Progress Note Date: 12/09/19 84-year-old male one of Dr. Turcios's patient who was in the office 2 weeks ago for second finger infection of the right hand was treated with oral antibiotic without improvement ended up having another antibiotics orally according to 's and has done slightly but better with it. 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 Patient ended up going to the emergency department and [facility] where was found to be in acute renal failure with significant hyperkalemia and found to have severe bradycardia with junctional rhythm with pulse rate running in the 40s. Not a clear with of the acute renal failure happen first or the heart block causing hypoperfusion and renal failure is the reason. Patient ended up having transcutaneous pacer was started on hydration consult nephrology will be admitted to the ICU the rest of his lab value with the bun up to 105 creatinine 2.65 his calcium was 10.4 potassium 5.9. Patient will be seen cardiology and nephrology slightly elevated liver function tests most likely from hypoperfusion as well. 12/06: Patient remains in the intensive care unit. He has been in a sinus rhythm and heart rate is running in the 50s and 60s. He was seen by cardiology and started on dopamine drip for bradycardia. Beta alonzo on hold. Echocardiogram is currently pending. Blood pressure 149/77, pulse ox 94% on 2 L. He is currently on IV fluids 100 mL per hour. He has had good urine output. He is eating without nausea or vomiting. He continues to have significant weakness. Renal ultrasound reveals no hydronephrosis. Benign cyst on either side. Limited visualization of portions of the right kidney. He has a Salgado catheter in place. Repeat lab work reveals improvement of his renal function through the night. Currently BUN is 99 and creatinine 2.81. Potassium 4.8, hemoglobin 13.2. Phosphorus is 5.4. TSH 1.660. Urinalysis clear with blood moderate, leukoesterase small, RBCs 41, WBC 7. 6/: Patient remains in the intensive care unit. Lab work is significantly improved. WBC is 3.7, hemoglobin 11.6, platelet count 72. BUN 71 and creatinine 1.52. Sodium 138, potassium 4.1, chloride 111, CO2 23. Patient had episodes of junctional rhythm during the night. Cardiology has seen the patient the morning and cleared him for transfer to cardiac stepdown unit. Patient has been afebrile, heart rate in the 60s and 70s, blood pressure 125/71. Nephrology has decreased IV fluids to 50 mL per hour. IV to be hep-locked this evening. Echocardiogram reveals EF of 55% with mild concentric left ventricular hypertrophy, moderate aortic valve sclerosis, mild mitral regurgitation, moderate to severe tricuspid regurgitation, moderate to severe pulmonary hypertension. 12/08: Patient is a remains in the intensive care unit. He has been hemodynamically stable. He is complaining of achiness in his legs which she always has. He also complains of soreness in his abdomen. He complains of con stipation for which she took prune juice this morning and lactulose was added by Dr. Huffman. Repeat blood work this morning reveals WBC 4.8, hemoglobin 12.6, platelet count 86. BUN 15 creatinine 1.17, blood sugar 115, chloride 109. IV fluids have been saline locked. Amlodipine increased by cardiology. Discharge plan is home with homecare. Review of Systems CONSTITUTIONAL: Well-developed no acute respiratory distress. Denies lightheadedness or dizziness. EYES: No icterus sclerae, no conjunctivitis. EARS, NOSE, MOUTH, THROAT, and FACE: No sore throat, lymphadenopathy, carotid bruits or deformity. RESPIRATORY: Mild shortness of breath. CARDIOVASCULAR: Severe bradycardia improved with PND orthopnea and palpitation. GASTROINTESTINAL: Abdominal pain with nausea no vomiting. Reports constipation GENITOURINARY: Decrease urine output with acute renal failure. INTEGUMENT/BREAST: Negative for any muscular injury with mild osteoarthritis.. HEMATOLOGIC/LYMPHATIC: Negative for bleed or purpura. MUSCULOSKELTAL: Negative for Myalgia or arthralgia. NEURLOGICAL: Presyncope generalized weakness and worsening dementia. BEHAVIORAL/PSYCH: Negative. ENDOCRINE: Negative. Physical examination General Appearance: Alert, cooperative, no distress, appears stated age. Neck HEENT: Supple, no lymphadenopathy, no thyroid enlargement, no carotid bruits. Lungs: Decreased breath some bilateral fine rhonchi. No crackles mild expiratory wheezes. Chest Wall: Decrease expansion with deep inspiration no tenderness and no deformity was found on exam, no costochondral pain or discomfort. Heart: Irregular rate and rhythm, S1, S2 with systolic murmur. Back: Symmetric, no curvature, ROM normal, no CVA tenderness. Abdomen: Soft, non-tender, bowel sounds active all four quadrants, no masses, no organomegaly. Salgado catheter draining clear dai urine. Extremities: Severe advance arthralgia look like severe osteoarthritis with mild healing cellulitis and small ulcer area on the second finger on the right side. Pulses: 2+ and symmetric. Skin: Skin color, texture, tugor normal, no rashes or lesions. Neurologic: Alert oriented with severe confusion moving all his 4 extremities generalized weakness no focal deficit. Assessment and plan 1 acute renal failure, acute tubular necrosis from hypoperfusion possibly from severe bradycardia and junctional rhythm. IV fluids 50 cc per hour. Consult with nephrology appreciated. No hydronephrosis noted on ultrasound. Continue to monitor renal function, I&O 2 severe bradycardia with sick sinus syndrome and junctional rhythm secondary to renal failure, improving. Etiology consult appreciated. Patient is off dopamine drip. He has been seeing Dr. Robert cardiology regularly. Continue Imdur, Lipitor 3 severe hypokalemia and hypercalcemia. Continue electrolyte replacement as indicated. 4 abnormal liver function test: Most likely from hypoperfusion from the severity of the heart block and renal failure. 5 metabolic acidosis secondary to acute kidney injury. 6 acute cellulitis of the right second finger was treated with Levaquin orally recently. 7 hyperlipidemia: Has been on atorvastatin 20 mg daily. 8 severe thrombocytopenia: Not a clear etiology. 9 hypothyroidism: Continue patient on levothyroxine 25 g daily. 10 severe neuropathy: Has been on gabapentin 400 mg daily. 11 hypertension. Amlodipine increased to 10 mg daily. 12 GI prophylaxis: We'll continue patient on pantoprazole. 13 DVT prophylaxis: Knee-high LUI hose and early mobilization and avoid heparin drip for now and any anti- coagulation for now. 14 COVID-19 infection not present. CODE STATUS: Full code. Discharge plan: Home with [facility] Impression and plan of care have been directed as dictated by the signing physician. Veda Shaver nurse practitioner acting as scribe for signing physician. Objective - Vital Signs Vital signs: Vital Signs Temp 98.0 F 12/09/19 04:00 Pulse 86 12/09/19 08:01 Resp 12 12/09/19 08:01 BP 169/90 12/09/19 08:01 Pulse Ox 97 12/09/19 04:00 Intake & Output 12/08/19 12/09/19 12/09/19 18:59 06:59 18:59 Intake Total 572 550 Output Total 300 700 100 Balance 272 -150 -100 Weight 60.2 kg Intake: Intake, IV Titration 350 50 Amount Sodium Chloride 0.9% 1, 350 50 000 ml @ 50 mls/hr IV . Q20H [facility] Rx#:[id number] Oral 222 500 Output: Urine 300 700 100 Other: Voiding Method Bedside Commode Bedside Commode Urinal Urinal # Voids 1 - Labs CBC & Chem 7: 12/09/19 05:37 12/09/19 05:37 Labs: Abnormal Lab Results - Last 24 Hours (Table) 12/09/19 12/09/19 Range/Units 05:37 05:37 RBC 4.07 L (4.30-5.90) m/uL Hgb 12.6 L (13.0-17.5) gm/dL Plt Count 86 L (150-450) k/uL Chloride 109 H (98-107) mmol/L BUN 50 H (9-20) mg/dL Glucose 115 H (74-99) mg/dL
[2019-12-09] MEDS ORDERED: MAGNESIUM HYDROXIDE 2,400 MG/10 ML CUP PO PRN (12:40)
--- NOTE | 2019-12-09 13:41 | PN ---
PROGRESS NOTE 84-year-old gentleman who is admitted with symptomatic junctional bradycardia. This morning patient is feeling better. On exam, heart rate is 86 beats per minute. Blood pressure is 116/92. Respiratory rate is 18. Chest exam reveals good air entry bilaterally. Heart exam reveals first and second heart sounds. No gallop. There is a systolic murmur at the apex. Abdomen: Soft. Exam of extremities did not reveal any edema. Peripheral pulses are felt. Labs show a hemoglobin of 12.6, potassium is 4, BUN is 50, creatinine is 1.1. ASSESSMENT: 1. Symptomatic junctional bradycardia secondary to hyperkalemia. 2. Renal failure secondary to intravascular volume depletion. 3. Hypertension. PLAN: I will start the patient on Norvasc 10 mg daily. Continue to hold the beta alonzo. MMODL / IJN: [id number] /
--- NOTE | 2019-12-09 14:35 | P.PN ---
Subjective Progress Note Date: 12/09/19 Principal diagnosis: Junctional bradycardia likely related to hyperkalemia and acute kidney injury, resolved 84-year-old white male patient of Dr. 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 He came in to the emergency department per EMS on 12/06/2019 for evaluation of generalized weakness and bradycardia. Patient was transferred from an outside hospital, he was in junctional bradycardia, his lab work revealed evidence of acute renal injury and hyperkalemia. Hyperkalemia was treated at the transferring facility and lab work at this hospital on arrival showed potassium level of 5.9. White blood cell count was 8.0, hemoglobin is 13.2, INR is 1.2, sodium is 136, chloride is 103, CO2 is 20, BUN was 100, creatinine was 3.48, patient was given a liter in fluid bolus, currently his IV fluids infusing at 100 ML per hour, with 0.9 normal saline. Troponin was 0.027, TSH was within normal limits at 1.660. EKG in the emergency department showed atrial fibrillation with slow ventricular response with a rate of 38 BPM. Patient was given IV fluids, dopamine was started and is currently infusing at 6 mics per kilo per minute. Heart rate has improved, and current heart rate is 53-66 BPM. In the emergency department serum potassium of 5.9 was again treated with 50% dextrose, regular insulin, and this morning's lab work shows serum potassium of 4.9. Current blood pressure is 132/62, no fever or chills, patient is currently on 2 L of oxygen daily denies any shortness of breath. Salgado catheter is in place patient is producing 65-100 ML per hour. Patient is tolerating oral intake, he denies any nausea vomiting or diarrhea at home. On 12/09/2019 patient seen in follow-up in the intensive care unit, he is awake and alert, in no acute distress, is currently in bed, but patient has been up out of bed going to the bathroom, and tolerating activity fairly well, room air pulse ox is 96%, patient denies any shortness of breath, afebrile, hemodynamically patient is stable. He is in sinus mechanism, no recurrent issues with bradycardia. Cardiology is following. His TSH was within normal limits, echocardiogram has been reviewed showing mild concentric left vent ricular hypertrophy and EF of 50-55%, mildly enlarged right ventricle, moderate aortic valve sclerosis, mild MR, moderate to severe tricuspid regurgitation and moderate to severe pulmonary hypertension with right-sided pressures of 57.4 mmHg. On today's labs his white count is 4.8, hemoglobin is 12.6, sodium is 139, potassium is 4.0, chloride is 109, CO2 is 22, BUN is 50 creatinine is 1.17 Objective - Vital Signs Vital signs: Vital Signs Temp 97.5 F L 12/09/19 08:01 Pulse 79 12/09/19 14:03 Resp 11 L 12/09/19 14:03 BP 152/85 12/09/19 14:03 Pulse Ox 96 12/09/19 12:01 Intake & Output 12/08/19 12/09/19 12/09/19 18:59 06:59 18:59 Intake Total 572 550 550 Output Total 300 700 225 Balance 272 -150 325 Weight 60.2 kg Intake: Intake, IV Titration 350 50 550 Amount Sodium Chloride 0.9% 1, 350 50 550 000 ml @ 50 mls/hr IV . Q20H [facility] Rx#:[id number] Oral 222 500 Output: Urine 300 700 225 Other: Voiding Method Bedside Commode Bedside Commode Bedside Commode Urinal Urinal Urinal # Voids 1 - Exam GENERAL EXAM: Alert, very pleasant, 84-year-old white male, on 2 L of oxygen with a pulse ox of 96%, comfortable in no apparent distress. HEAD: Normocephalic/atraumatic. EYES: Normal reaction of pupils, equal size. Conjunctiva pink, sclera white. NOSE: Clear with pink turbinates. THROAT: No erythema or exudates. NECK: No masses, no JVD, no thyroid enlargement, no adenopathy. CHEST: No chest wall deformity. Symmetrical expansion. LUNGS: Equal air entry with no crackles, wheeze, rhonchi or dullness. CVS: Regular rate and rhythm, normal S1 and S2, no gallops, systolic murmur murmur auscultated, no rubs ABDOMEN: Soft, nontender. No hepatosplenomegaly, normal bowel sounds, no guarding or rigidity. EXTREMITIES: No clubbing, no edema, no cyanosis, 2+ pulses and upper and lower extremities. Extensive degenerative joint changes involving proximal and distal interphalangeal joints on both hands MUSCULOSKELETAL: Muscle strength and tone normal. SPINE: No scoliosis or deformity SKIN: Open wound on the second digit on the right hand, shallow, nondraining, 100% granulated CENTRAL NERVOUS SYSTEM: Alert and oriented -3. No focal deficits, tone is normal in all 4 extremities. PSYCHIATRIC: Alert and oriented -3. Appropriate affect. Intact judgment and insight. - Labs CBC & Chem 7: 12/09/19 05:37 12/09/19 05:37 Labs: Abnormal Lab Results - Last 24 Hours (Table) 12/09/19 12/09/19 Range/Units 05:37 05:37 RBC 4.07 L (4.30-5.90) m/uL Hgb 12.6 L (13.0-17.5) gm/dL Plt Count 86 L (150-450) k/uL Chloride 109 H (98-107) mmol/L BUN 50 H (9-20) mg/dL Glucose 115 H (74-99) mg/dL Assessment and Plan Plan: Assessment: #1. Symptomatic junctional bradycardia, possibly related to hypokalemia and acute kidney injury, recovered, and patient has been in sinus mechanism, electrolytes have normalized, and kidney function is recovering #2. Hyperkalemia related to acute kidney injury and nonsteroidal agent use, recovered #3. Acute kidney injury, nephrology is following. Improved with hydration #4. Hypertension #5. Non-anion gap metabolic acidosis improving #6. Wound infection on the right second digit of the right hand, recently treated with antibiotics #7. Glaucoma #8. Degenerative joint arthritis #9. Hyperlipidemia #10. BPH on Flomax #11. Hypothyroidism #12. Lifetime nonsmoker Plan: Patient is doing well, renal function has recovered, electrolytes have improved, serum potassium is 4.0, no nausea or vomiting, patient is tolerating oral intake, no recurrent bradycardia, no acute issues overnight, patient can make transfer out of the intensive care unit to the [facility] care today. I performed a history & physical examination of the patient and discussed their management with my nurse practitioner, Susan Kelley. I reviewed the nurse practitioner's note and agree with the documented findings and plan of care. Lung sounds are positive for clear breath sounds. The findings and the impres nakia was discussed with the patient. I attest to the documentation by the nurse practitioner. Time with Patient: Less than 30
[2019-12-09] MEDS: ATORVASTATIN 20 MG TAB PO SCH (20:14)
[2019-12-09] MEDS: LATANOPROST 0.005% OPHTH DROPS 2.5 ML BTL BOTH EYES SCH (21:21)
[2019-12-09] MEDS ORDERED: hydrALAZINE HCL 25 MG TAB PO SCH (21:45)
[2019-12-10 06:08] LABS: Basophils % (A) 0 %; Eosinophils # (A) 0.2 k/uL (0-0.7); Eosinophils % (A) 5 %; HCT 37.7 % (39.0-53.0); HGB 12.8 gm/dL (13.0-17.5); Lymphocytes # (A) 0.9 k/uL (1.0-4.8); Lymphocytes % (A) 22 %; MCH 33.1 pg (25.0-35.0); MCHC 33.9 g/dL (31.0-37.0); MCV 97.7 fL (80.0-100.0); Mean Platelet Volume 8.2; Monocytes # (A) 0.3 k/uL (0-1.0); Monocytes % (A) 7 %; Neutrophils # (A) 2.4 k/uL (1.3-7.7); Neutrophils % (A) 62 %; RBC 3.86 m/uL (4.30-5.90); RDW 13.2 % (11.5-15.5); WBC 3.8 k/uL (3.8-10.6)
[2019-12-10 06:14] LABS: Platelet Count 89 k/uL (150-450)
[2019-12-10 06:37] LABS: Calcium 9.2 mg/dL (8.4-10.2); Potassium 4.4 mmol/L (3.5-5.1)
[2019-12-10] MEDS: PANTOPRAZOLE 40 MG TABLET PO SCH (06:47)
[2019-12-10] MEDS: LEVOTHYROXINE 25 MCG TAB PO SCH (06:47)
[2019-12-10] MEDS: LACTULOSE 20 GM/30 ML CUP PO PRN (06:47)
--- NOTE | 2019-12-10 08:25 | P.PN ---
Subjective Patient is seen in follow for acute kidney injury. Renal function continues to improve and is now back to baseline. Good urine output. Remains off vasopressors. No chest pain or shortness breath. Oral intake fair. Vital signs are stable. General: The patient appeared well nourished and normally developed. HEENT: Head exam is unremarkable. Neck is without jugular venous distension. LUNGS: Lungs are clear to auscultation and percussion. Breath sounds decreased. HEART: Rate and Rhythm are regular. ABDOMEN: Soft, nontender. EXTREMITITES: No edema. Objective - Vital Signs Vital signs: Vital Signs Temp 97.9 F 12/10/19 04:00 Pulse 62 12/10/19 04:00 Resp 24 12/10/19 04:00 BP 156/92 12/10/19 04:00 Pulse Ox 96 12/10/19 04:00 Intake & Output 12/09/19 12/10/19 12/10/19 18:59 06:59 18:59 Intake Total 550 260 Output Total 475 400 Balance 75 -140 Weight 60.5 kg Intake: Intake, IV Titration 550 Amount Sodium Chloride 0.9% 1, 550 000 ml @ 50 mls/hr IV . Q20H [facility] Rx#:[id number] Oral 260 Output: Urine 475 400 Other: Voiding Method Bedside Commode Bedside Commode Urinal Urinal # Voids 1 # Bowel Movements 1 - Labs CBC & Chem 7: 12/10/19 05:44 12/10/19 05:44 Labs: Abnormal Lab Results - Last 24 Hours (Table) 12/10/19 12/10/19 Range/Units 05:44 05:44 RBC 3.86 L (4.30-5.90) m/uL Hgb 12.8 L (13.0-17.5) gm/dL Hct 37.7 L (39.0-53.0) % Plt Count 89 L (150-450) k/uL Lymphocytes # 0.9 L (1.0-4.8) k/uL Chloride 108 H (98-107) mmol/L BUN 39 H (9-20) mg/dL Assessment and Plan Plan: Assessment: 1. Acute kidney injury mostly prerenal secondary to hemodynamic instability/bradycardia. Creatinine was 3.65 on admission and is 0.98 today. Baseline creatinine from November 2017 near 1. Trace proteinuria on UA. No hydronephrosis noted a kidney ultrasound however both kidneys are small in size. 2. Junctional bradycardia, resolved. s/p dopamine. Cardiology following. Doubt due to hyperkalemia as potassium level was only mildly elevated. 3. Hyperkalemia secondary to acute kidney injury, nonsteroidals and metabolic acidosis. Resolved. 4. Benign hypertension. Currently stable. 5. Metabolic acidosis secondary to acute kidney injury, improved. 6. 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 Plan: Remains off IV fluids. Encouraged oral intake. I will sign off. Please call with any questions or concerns.
[2019-12-10] MEDS: ASCORBIC ACID 500 MG TAB PO SCH (09:48)
[2019-12-10] MEDS: ISOSORBIDE MONONITRATE ER 30 MG TAB.ER.24H PO SCH (09:48)
[2019-12-10] MEDS: CYANOCOBALAMIN 500 MCG TAB PO SCH (09:49)
[2019-12-10] MEDS: TAMSULOSIN 0.4 MG CAP.ER.24H PO SCH (09:49)
[2019-12-10] MEDS: CHOLECALCIFEROL 1,000 UNIT TAB PO SCH (09:49)
[2019-12-10] MEDS: GABAPENTIN 400 MG CAP PO SCH ×2 (09:50→19:51)
[2019-12-10] MEDS: amLODIPine 10 MG TAB PO SCH (09:50)
--- NOTE | 2019-12-10 10:44 | PN ---
PROGRESS NOTE 84-year-old gentleman who is admitted to hospital with symptomatic junctional bradycardia and renal failure. This morning he is doing much better remains in sinus rhythm, free of chest pain, difficulty in breathing. O2 saturation is 96% on room air. Blood pressure is elevated at 156/90. He is currently on Apresoline 25 mg b.i.d., Imdur, Lipitor, amlodipine 10 mg daily. On exam, comfortable at rest. There is no jugular venous distention. Carotid upstroke is normal. Chest exam reveals occasional rhonchi bilaterally. Heart exam reveals first and second heart sounds with a systolic murmur at the apex. Abdomen is soft. Exam of extremities did not reveal any edema. Peripheral pulses are felt. Labs show that the hemoglobin is 12.8, potassium is 4.4, creatinine is 0.98 and BUN is 39. ASSESSMENT: 1. Junctional bradycardia secondary to hyperkalemia. 2. Hypertension. PLAN: I am going to increase the dose of hydralazine to 50 q.8 for more optimal blood pressure control. MMODL / IJN: [id number] /
--- NOTE | 2019-12-10 13:32 | P.PN ---
Subjective Progress Note Date: 12/10/19 On today's evaluation of 12/10/2019, the patient's renal function is back to his baseline. The patient presented with acute kidney injury and he was resuscitated IV fluids. He is on no pressors for now. He has a good urine output. Denies having any chest pain. No shortness of breath. No significant cardiac arrhythmias. There are few instances where the patient had some questionable junctional rhythm and cardiology is monitoring these events. Is current rhythm is sinus. No immediate plans to do any pacemaker intervention. Potassium level is normalized. Echocardiogram was noted. The patient is hemodynamic stable for now. No other significant events overnight. Objective - Vital Signs Vital signs: Vital Signs Temp 97.9 F 12/10/19 12:00 Pulse 74 12/10/19 12:00 Resp 14 12/10/19 12:00 BP 120/81 12/10/19 12:00 Pulse Ox 97 12/10/19 12:00 Intake & Output 12/09/19 12/10/19 12/10/19 18:59 06:59 18:59 Intake Total 550 260 Output Total 475 400 200 Balance 75 -140 -200 Weight 60.5 kg Intake: Intake, IV Titration 550 Amount Sodium Chloride 0.9% 1, 550 000 ml @ 50 mls/hr IV . Q20H [facility] Rx#:[id number] Oral 260 Output: Urine 475 400 200 Other: Voiding Method Bedside Commode Bedside Commode Bedside Commode Urinal Urinal Urinal # Voids 1 1 # Bowel Movements 1 - Exam GENERAL EXAM: Alert, very pleasant, 84-year-old white male, on room air oxygen HEAD: Normocephalic/atraumatic. EYES: Normal reaction of pupils, equal size. Conjunctiva pink, sclera white. NOSE: Clear with pink turbinates. THROAT: No erythema or exudates. NECK: No masses, no JVD, no thyroid enlargement, no adenopathy. CHEST: No chest wall deformity. Symmetrical expansion. LUNGS: Equal air entry with no crackles, wheeze, rhonchi or dullness. CVS: Regular rate and rhythm, normal S1 and S2, no gallops, systolic murmur murmur auscultated, no rubs ABDOMEN: Soft, nontender. No hepatosplenomegaly, normal bowel sounds, no guarding or rigidity. EXTREMITIES: No clubbing, no edema, no cyanosis, 2+ pulses and upper and lower extremities. Extensive degenerative joint changes involving proximal and distal interphalangeal joints on both hands MUSCULOSKELETAL: Muscle strength and tone normal. SPINE: No scoliosis or deformity SKIN: Open wound on the second digit on the right hand, shallow, nondraining, 100% granulated CENTRAL NERVOUS SYSTEM: Alert and oriented -3. No focal deficits, tone is normal in all 4 extremities. PSYCHIATRIC: Alert and oriented -3. Appropriate affect. Intact judgment and insight. - Labs CBC & Chem 7: 12/10/19 05:44 12/10/19 05:44 Labs: Abnormal Lab Results - Last 24 Hours (Table) 12/10/19 12/10/19 Range/Units 05:44 05:44 RBC 3.86 L (4.30-5.90) m/uL Hgb 12.8 L (13.0-17.5) gm/dL Hct 37.7 L (39.0-53.0) % Plt Count 89 L (150-450) k/uL Lymphocytes # 0.9 L (1.0-4.8) k/uL Chloride 108 H (98-107) mmol/L BUN 39 H (9-20) mg/dL Assessment and Plan Plan: #1. Symptomatic junctional bradycardia, possibly related to hypokalemia and acute kidney injury. The patient is improving and cardiac rhythm is back to sinus. He had another brief episodes of junctional rhythm yesterday for a limited period of time and this recovered spontaneously. He is off dopamine infusion for now. The patient continues to be in normal sinus rhythm. The electrolytes have normalized. Potassium level is normalized and the patient is currently off beta blockers. #2. Hyperkalemia related to acute kidney injury and nonsteroidal agent use, recovered, and the potassium level is normalized #3. Acute kidney injury, recovered #4. Hypertension #5. Non-anion gap metabolic acidosis improving, improving and the patient's serum bicarb level is normalized #6. Wound infection on the right second digit of the right hand, recently treated with antibiotics #7. Glaucoma #8. Degenerative joint arthritis #9. Hyperlipidemia #10. BPH on Flomax #11. Hypothyroidism #12. Lifetime nonsmoker Plan This patient is doing well. The patient is off beta blockers. The patient has normalized renal function and the rest of the electrolytes are all within normal limits. Follow-up with cardiology. Follow-up cardiac rhythm. No plans for a pacemaker insertion. The patient can be transferred to telemetry unit.
--- NOTE | 2019-12-10 14:49 | P.PN ---
Subjective Progress Note Date: 12/10/19 84-year-old male one of Dr. Turcios's patient who was in the office 2 weeks ago for second finger infection of the right hand was treated with oral antibiotic without improvement ended up having another antibiotics orally according to 's and has done slightly but better with it. 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 Patient ended up going to the emergency department and [facility] where was found to be in acute renal failure with significant hyperkalemia and found to have severe bradycardia with junctional rhythm with pulse rate running in the 40s. Not a clear with of the acute renal failure happen first or the heart block causing hypoperfusion and renal failure is the reason. Patient ended up having transcutaneous pacer was started on hydration consult nephrology will be admitted to the ICU the rest of his lab value with the bun up to 105 creatinine 2.65 his calcium was 10.4 potassium 5.9. Patient will be seen cardiology and nephrology slightly elevated liver function tests most likely from hypoperfusion as well. 12/06: Patient remains in the intensive care unit. He has been in a sinus rhythm and heart rate is running in the 50s and 60s. He was seen by cardiology and started on dopamine drip for bradycardia. Beta alonzo on hold. Echocardiogram is currently pending. Blood pressure 149/77, pulse ox 94% on 2 L. He is currently on IV fluids 100 mL per hour. He has had good urine output. He is eating without nausea or vomiting. He continues to have significant weakness. Renal ultrasound reveals no hydronephrosis. Benign cyst on either side. Limited visualization of portions of the right kidney. He has a Salgado catheter in place. Repeat lab work reveals improvement of his renal function through the night. Currently BUN is 99 and creatinine 2.81. Potassium 4.8, hemoglobin 13.2. Phosphorus is 5.4. TSH 1.660. Urinalysis clear with blood moderate, leukoesterase small, RBCs 41, WBC 7. 6/: Patient remains in the intensive care unit. Lab work is significantly improved. WBC is 3.7, hemoglobin 11.6, platelet count 72. BUN 71 and creatinine 1.52. Sodium 138, potassium 4.1, chloride 111, CO2 23. Patient had episodes of junctional rhythm during the night. Cardiology has seen the patient the morning and cleared him for transfer to cardiac stepdown unit. Patient has been afebrile, heart rate in the 60s and 70s, blood pressure 125/71. Nephrology has decreased IV fluids to 50 mL per hour. IV to be hep-locked this evening. Echocardiogram reveals EF of 55% with mild concentric left ventricular hypertrophy, moderate aortic valve sclerosis, mild mitral regurgitation, moderate to severe tricuspid regurgitation, moderate to severe pulmonary hypertension. 12/08: Patient is a remains in the intensive care unit. He has been hemodynamically stable. He is complaining of achiness in his legs which she always has. He also complains of soreness in his abdomen. He complains of co nstipation for which she took prune juice this morning and lactulose was added by Dr. Huffman. Repeat blood work this morning reveals WBC 4.8, hemoglobin 12.6, platelet count 86. BUN 15 creatinine 1.17, blood sugar 115, chloride 109. IV fluids have been saline locked. Amlodipine increased by cardiology. Discharge plan is home with homecare. 12/08: Patient remains in ICU, he seems to be much more comfortable, he does have a very pinpoint right-sided chest pain, not related to dysphagia, no aspirate events, no palpitations, he does have PVCs [facility] is in the monitor, vitals are stable, his electrolytes have improved, creatinine is improved, good urine output, no shortness of breath, patient denies any palpitations, cardiology is following, no immediate plans for pacemaker intervention, patient remains in sinus rhythm. Acute kidney injury has improved, creatinine of 0.98, from a previous of 1.1, and 3 creatinine of 2.8, potassium 4.4 sodium normal, but admission normal on and 3. Urinalysis WBC 7 no urine culture needed, has microscopic hematuria, blood pressure fluctuates 120- 168, heart rate fluctuates 63-74 within the past 24 hours, pulse oximetry is normal, no rest or distress. Hydralazine was increased by cardiology to 50 mg 3 times a day Review of Systems CONSTITUTIONAL: Well-developed no acute respiratory distress. Denies li ghtheadedness or dizziness. EYES: No icterus sclerae, no conjunctivitis. EARS, NOSE, MOUTH, THROAT, and FACE: No sore throat, lymphadenopathy, carotid bruits or deformity. RESPIRATORY: Mild shortness of breath. CARDIOVASCULAR: Severe bradycardia improved with PND orthopnea and palpitation. GASTROINTESTINAL: Abdominal pain with nausea no vomiting. Reports constipation GENITOURINARY: Decrease urine output with acute renal failure. INTEGUMENT/BREAST: Negative for any muscular injury with mild osteoarthritis.. HEMATOLOGIC/LYMPHATIC: Negative for bleed or purpura. MUSCULOSKELTAL: Negative for Myalgia or arthralgia. NEURLOGICAL: Presyncope generalized weakness and worsening dementia. BEHAVIORAL/PSYCH: Negative. ENDOCRINE: Negative. Objective - Vital Signs Vital signs: Vital Signs Temp 97.9 F 12/10/19 12:00 Pulse 74 12/10/19 12:00 Resp 14 12/10/19 12:00 BP 120/81 12/10/19 12:00 Pulse Ox 97 12/10/19 12:00 Intake & Output 12/09/19 12/10/19 12/10/19 18:59 06:59 18:59 Intake Total 550 260 Output Total 475 400 200 Balance 75 -140 -200 Weight 60.5 kg Intake: Intake, IV Titration 550 Amount Sodium Chloride 0.9% 1, 550 000 ml @ 50 mls/hr IV . Q20H [facility] Rx#:[id number] Oral 260 Output: Urine 475 400 200 Other: Voiding Method Bedside Commode Bedside Commode Bedside Commode Urinal Urinal Urinal # Voids 1 1 # Bowel Movements 1 - Constitutional General appearance: Present: average body habitus, cooperative, no acute distress - EENT Eyes: Present: anicteric sclerae, EOMI, PERRLA, dentition normal, normal appearance ENT: Present: NA/AT, normal oropharynx - Neck Neck: Present: normal ROM - Respiratory Respiratory: bilateral: CTA, negative: diminished, dullness, rales, rhonchi - Cardiovascular Rhythm: regular Heart sounds: normal: S1, S2 Abnormal Heart Sounds: Absent: systolic murmur, diastolic murmur, rub, S3 Gallop, S4 Gallop, click, other - Gastrointestinal General gastrointestinal: Present: normal bowel sounds, soft - Integumentary Integumentary: Present: normal, normal turgor - Neurologic Neurologic: Present: CNII-XII intact - Musculoskeletal Musculoskeletal: Present: gait normal - Psychiatric Psychiatric: Present: A&O x's 3, appropriate affect, intact judgment & insight - Labs CBC & Chem 7: 12/10/19 05:44 12/10/19 05:44 Labs: Abnormal Lab Results - Last 24 Hours (Table) 12/10/19 12/10/19 Range/Units 05:44 05:44 RBC 3.86 L (4.30-5.90) m/uL Hgb 12.8 L (13.0-17.5) gm/dL Hct 37.7 L (39.0-53.0) % Plt Count 89 L (150-450) k/uL Lymphocytes # 0.9 L (1.0-4.8) k/uL Chloride 108 H (98-107) mmol/L BUN 39 H (9-20) mg/dL Assessment and Plan Plan: Assessment and plan 1 acute renal failure, acute tubular necrosis from hypoperfusion possibly from severe bradycardia and junctional rhythm improved. IV fluids 50 cc per hour. Consult with nephrology appreciated. No hydronephrosis noted on ultrasound. Continue to monitor renal function, I&O 2 severe bradycardia with sick sinus syndrome and junctional rhythm secondary to renal failure, improving. Etiology consult appreciated. Patient is off dopamine drip. He has been seeing Dr. Robert cardiology regularly. Continue Imdur, Lipitor hydralazine 3 severe hypokalemia and hypercalcemia improved. Continue electrolyte replacement as indicated. 4 abnormal liver function test improved: Most likely from hypoperfusion from the severity of the heart block and renal failure. Monitor labs 5 metabolic acidosis secondary to acute kidney injury. 6 acute cellulitis of the right second finger was treated with Levaquin orally recently. 7 hyperlipidemia: Has been on atorvastatin 20 mg daily. 8 severe thrombocytopenia: Not a clear etiology. 9 hypothyroidism: Continue patient on levothyroxine 25 g daily. 10 severe neuropathy: Has been on gabapentin 400 mg daily. 11 hypertension. Amlodipine increased to 10 mg daily. 12 GI prophylaxis: We'll continue patient on pantoprazole. 13 DVT prophylaxis: Knee-high LUI hose and early mobilization and avoid heparin drip for now and any anti- coagulation for now. 14 COVID-19 infection not present. CODE STATUS: Full code. Discharge plan: Home with [facility]
[2019-12-10] MEDS: hydrALAZINE HCL 50 MG TAB PO SCH ×2 (17:06→21:22)
[2019-12-10] MEDS: ATORVASTATIN 20 MG TAB PO SCH (19:51)
[2019-12-10] MEDS: LATANOPROST 0.005% OPHTH DROPS 2.5 ML BTL BOTH EYES SCH (19:51)
[2019-12-11 05:29] LABS: Basophils % (A) 0 %; Eosinophils # (A) 0.2 k/uL (0-0.7); Eosinophils % (A) 4 %; HCT 38.9 % (39.0-53.0); HGB 12.6 gm/dL (13.0-17.5); Lymphocytes % (A) 21 %; MCH 31.2 pg (25.0-35.0); MCHC 32.3 g/dL (31.0-37.0); MCV 96.7 fL (80.0-100.0); Mean Platelet Volume 8.1; Monocytes # (A) 0.4 k/uL (0-1.0); Monocytes % (A) 8 %; Neutrophils % (A) 66 %; RBC 4.02 m/uL (4.30-5.90); RDW 13.2 % (11.5-15.5); WBC 4.6 k/uL (3.8-10.6)
[2019-12-11 05:31] LABS: Platelet Count 91 k/uL (150-450)
[2019-12-11 05:34] LABS: Albumin 3.6 g/dL (3.5-5.0); Calcium 9.4 mg/dL (8.4-10.2); Potassium 3.9 mmol/L (3.5-5.1); Total Bilirubin 1.1 mg/dL (0.2-1.3); Total Protein 6.1 g/dL (6.3-8.2)
[2019-12-11] MEDS: PANTOPRAZOLE 40 MG TABLET PO SCH (06:35)
[2019-12-11] MEDS: LEVOTHYROXINE 25 MCG TAB PO SCH (06:35)
[2019-12-11] MEDS: amLODIPine 10 MG TAB PO SCH (09:16)
[2019-12-11] MEDS: CYANOCOBALAMIN 500 MCG TAB PO SCH (09:17)
[2019-12-11] MEDS: CHOLECALCIFEROL 1,000 UNIT TAB PO SCH (09:17)
[2019-12-11] MEDS: GABAPENTIN 400 MG CAP PO SCH (09:17)
[2019-12-11] MEDS: ASCORBIC ACID 500 MG TAB PO SCH (09:17)
[2019-12-11] MEDS: TAMSULOSIN 0.4 MG CAP.ER.24H PO SCH (09:18)
[2019-12-11] MEDS: hydrALAZINE HCL 50 MG TAB PO SCH (09:18)
[2019-12-11] MEDS: ISOSORBIDE MONONITRATE ER 30 MG TAB.ER.24H PO SCH (09:18)
[2019-12-11] MEDS: LACTULOSE 20 GM/30 ML CUP PO PRN (09:22)
--- NOTE | 2019-12-11 10:11 | PN ---
PROGRESS NOTE 84-year-old gentleman who is admitted to hospital with acute symptomatic junctional bradycardia secondary to hyperkalemia and renal failure. He is doing well, free of cardiac symptoms, resume sinus rhythm and remains in sinus rhythm and stable to go home. On exam, comfortable at rest. Vital signs are stable. Blood pressure is somewhat elevated. There is no jugular venous distention. Chest exam reveals good air entry bilaterally. Heart exam reveals first and second heart sounds and grade 4/6 systolic murmur at the apex. Abdomen is soft. Exam of extremities did not reveal any edema. Peripheral pulses are felt. An echocardiogram on this admission revealed normal LV systolic function. Mild mitral regurgitation. Moderate to severe tricuspid regurgitation and moderate pulmonary hypertension. The patient is currently on amlodipine 10 mg daily, Lipitor 20 daily, Neurontin, Apresoline 50 t.i.d., Imdur 30 daily, and Protonix. ASSESSMENT: 1. Acute symptomatic junctional bradycardia secondary to hyperkalemia and renal failure. 2. Uncontrolled hypertension. PLAN: We can increase the dose of hydralazine in the outpatient setting if necessary. Please arrange follow up with Dr. Robert on discharge. MMODL / IJN: [id number] /
--- NOTE | 2019-12-11 11:07 | P.PN ---
Subjective Progress Note Date: 12/11/19 On 12/11/2019, the patient is doing well and has no specific complaints. Creatinine is down to 1.0. BUN is at 42. Electrodes are within normal limits. EKG is normal sinus rhythm. Hemodynamically stable. No chest pain. No nausea or vomiting. No abdominal pain. Producing adequate amount of urine output. White cell count is at 4.6. Patient is being considered for discharge today. No plans for pacemaker insertion. Cardiology's on the case. Objective - Vital Signs Vital signs: Vital Signs Temp 97.7 F 12/11/19 08:01 Pulse 96 12/11/19 08:01 Resp 15 12/11/19 08:01 BP 156/95 12/11/19 08:01 Pulse Ox 97 12/11/19 08:01 Intake & Output 12/10/19 12/11/19 12/11/19 18:59 06:59 18:59 Intake Total 560 Output Total 200 640 Balance -200 -80 Weight 56.2 kg Intake: Oral 560 Output: Urine 200 640 Other: Voiding Method Bedside Commode Bedside Commode Urinal Urinal # Voids 1 - Exam GENERAL EXAM: Alert, very pleasant, 84-year-old white male, on room air oxygen HEAD: Normocephalic/atraumatic. EYES: Normal reaction of pupils, equal size. Conjunctiva pink, sclera white. NOSE: Clear with pink turbinates. THROAT: No erythema or exudates. NECK: No masses, no JVD, no thyroid enlargement, no adenopathy. CHEST: No chest wall deformity. Symmetrical expansion. LUNGS: Equal air entry with no crackles, wheeze, rhonchi or dullness. CVS: Regular rate and rhythm, normal S1 and S2, no gallops, systolic murmur murmur auscultated, no rubs ABDOMEN: Soft, nontender. No hepatosplenomegaly, normal bowel sounds, no guard ing or rigidity. EXTREMITIES: No clubbing, no edema, no cyanosis, 2+ pulses and upper and lower extremities. Extensive degenerative joint changes involving proximal and distal interphalangeal joints on both hands MUSCULOSKELETAL: Muscle strength and tone normal. SPINE: No scoliosis or deformity SKIN: Open wound on the second digit on the right hand, shallow, nondraining, 100% granulated CENTRAL NERVOUS SYSTEM: Alert and oriented -3. No focal deficits, tone is normal in all 4 extremities. PSYCHIATRIC: Alert and oriented -3. Appropriate affect. Intact judgment and insight. - Labs CBC & Chem 7: 12/11/19 04:14 12/11/19 04:14 Labs: Abnormal Lab Results - Last 24 Hours (Table) 12/11/19 12/11/19 Range/Units 04:14 04:14 RBC 4.02 L (4.30-5.90) m/uL Hgb 12.6 L (13.0-17.5) gm/dL Hct 38.9 L (39.0-53.0) % Plt Count 91 L (150-450) k/uL BUN 42 H (9-20) mg/dL Total Protein 6.1 L (6.3-8.2) g/dL Assessment and Plan Plan: #1. Symptomatic junctional bradycardia, possibly related to hypokalemia and acute kidney injury. The patient is improving and cardiac rhythm is back to sinus. He had another brief episodes of junctional rhythm yesterday for a limited period of time and this recovered spontaneously. He is off dopamine infusion for now. The patient continues to be in normal sinus rhythm. The electrolytes have normalized. Potassium level is normalized and the patient is currently off beta blockers. #2. Hyperkalemia related to acute kidney injury and nonsteroidal agent use, recovered, and the potassium level is normalized #3. Acute kidney injury, recovered #4. Hypertension #5. Non-anion gap metabolic acidosis improving, improving and the patient's serum bicarb level is normalized #6. Wound infection on the right second digit of the right hand, recently treated with antibiotics #7. Glaucoma #8. Degenerative joint arthritis #9. Hyperlipidemia #10. BPH on Flomax #11. Hypothyroidism #12. Lifetime nonsmoker Plan This patient is doing well. The patient is off beta blockers. The renal functi on is normal. Beta blockers are off. The patient will be discharged home today.
[2019-12-11 13:46] VITALS: BP 102/55; PULSE 92; RESP 13; TEMP 98.3
--- NOTE | 2019-12-11 15:23 | P.DS ---
Providers Date of admission: 12/06/19 18:41 Expected date of discharge: 12/11/19 Attending physician: Héctor Diaz Consults: 12/06/19 18:41 Consult Physician Urgent Consulting Provider: Adalid Huffman Consult Reason/Comments: Acute renal failure, hyperkalemia Do you want consulting provider notified?: Already Contacted Consult Physician Urgent Consulting Provider: Sundar Cristobal Consult Reason/Comments: Bradycardia Do you want consulting provider notified?: Already Contacted 12/06/19 21:15 Consult Physician Urgent Consulting Provider: Bekah Chen Consult Reason/Comments: bradycardia Do you want consulting provider notified?: Already Contacted Primary care physician: [facility] Course: 84-year-old male one of Dr. Turcios's patient who was in the office 2 weeks ago for second finger infection of the right hand was treated with oral antibiotic without improvement ended up having another antibiotics orally according to 's and has done slightly but better with it. 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 Patient ended up going to the emergency department and [facility] where was found to be in acute renal failure with significant hyperkalemia and found to have severe bradycardia with junctional rhythm with pulse rate running in the 40s. Not a clear with of the acute renal failure happen first or the heart block causing hypoperfusion and renal failure is the reason. Patient ended up having transcutaneous pacer was started on hydration consult nephrology will be admitted to the ICU the rest of his lab value with the bun up to 105 creatinine 2.65 his calcium was 10.4 potassium 5.9. Patient will be seen cardiology and nephrology slightly elevated liver function tests most likely from hypoperfusion as well. 12/06: Patient remains in the intensive care unit. He has been in a sinus rhythm and heart rate is running in the 50s and 60s. He was seen by cardiology and started on dopamine drip for bradycardia. Beta alonzo on hold. Echocardiogram is currently pending. Blood pressure 149/77, pulse ox 94% on 2 L. He is currently on IV fluids 100 mL per hour. He has had good urine output. He is eating without nausea or vomiting. He continues to have significant weakness. Renal ultrasound reveals no hydronephrosis. Benign cyst on either side. Limited visualization of portions of the right kidney. He has a Salgado catheter in place. Repeat lab work reveals improvement of his renal function through the night. Currently BUN is 99 and creatinine 2.81. Potassium 4.8, hemoglobin 13.2. Phosphorus is 5.4. TSH 1.660. Urinalysis clear with blood moderate, leukoesterase small, RBCs 41, WBC 7. 12/07: Patient remains in the intensive care unit. Lab work is significantly improved. WBC is 3.7, hemoglobin 11.6, platelet count 72. BUN 71 and creatin ine 1.52. Sodium 138, potassium 4.1, chloride 111, CO2 23. Patient had episodes of junctional rhythm during the night. Cardiology has seen the patient the morning and cleared him for transfer to cardiac stepdown unit. Patient has been afebrile, heart rate in the 60s and 70s, blood pressure 125/71. Nephrology has decreased IV fluids to 50 mL per hour. IV to be hep-locked this evening. Echocardiogram reveals EF of 55% with mild concentric left ventricular hypertrophy, moderate aortic valve sclerosis, mild mitral regurgitation, moderate to severe tricuspid regurgitation, moderate to severe pulmonary hypertension. 12/08: Patient is a remains in the intensive care unit. He has been hemodynamically stable. He is complaining of achiness in his legs which she always has. He also complains of soreness in his abdomen. He complains of constipation for which she took prune juice this morning and lactulose was added by Dr. Huffman. Repeat blood work this morning reveals WBC 4.8, hemoglobin 12.6, platelet count 86. BUN 15 creatinine 1.17, blood sugar 115, chloride 109. IV fluids have been saline locked. Amlodipine increased by cardiology. Discharge plan is home with homecare. 12/09: Patient remains in ICU, he seems to be much more comfortable, he does have a very pinpoint right-sided chest pain, not related to dysphagia, no aspirate events, no palpitations, he does have PVCs Bigeminy in the monitor, vitals are stable, his electrolytes have improved, creatinine is improved, good urine output, no shortness of breath, patient denies any palpitations, cardiology is following, no immediate plans for pacemaker intervention, patient remains in sinus rhythm. Acute kidney injury has improved, creatinine of 0.98, from a previous of 1.1, and 3 creatinine of 2.8, potassium 4.4 sodium normal, but admission normal on and 3. Urinalysis WBC 7 no urine culture needed, has microscopic hematuria, blood pressure fluctuates 120-168, heart rate fluctuates 63-74 within the past 24 hours, pulse oximetry is normal, no rest or distress. Hydralazine was increased by cardiology to 50 mg 3 times a day 12/10 patient continues to be asymptomatic, no cardiac arrhythmias, patient has been seen by cardiology, no plans for pacemaker placement, medications has been adjusted by cardiology, and has been cleared for discharge. Also with career center director, no new medications adjusted today, and has been cleared by both specialists for discharge. Patient denies any chest pain no palpitations, has constipation, and has hiatal hernia problems on the with a full meal, none currently, without any distress, no melena and hematochezia. Cleared by nephrology, with resolution and improvement of renal function day back to baseline. Discontinued Aleve, amlodipine has been adjusted from 2.5-10 mg, m onitor for bowel production, lactulose and Senokot can be used cautiously, Review of Systems CONSTITUTIONAL: Well-developed no acute respiratory distress. Denies lighthea dedness or dizziness. EYES: No icterus sclerae, no conjunctivitis. EARS, NOSE, MOUTH, THROAT, and FACE: No sore throat, lymphadenopathy, carotid bruits or deformity. RESPIRATORY: Mild shortness of breath. CARDIOVASCULAR: Severe bradycardia improved with PND orthopnea and palpitation. GASTROINTESTINAL: Abdominal pain with nausea no vomiting. Reports constipation GENITOURINARY: Decrease urine output with acute renal failure. INTEGUMENT/BREAST: Negative for any muscular injury with mild osteoarthritis.. HEMATOLOGIC/LYMPHATIC: Negative for bleed or purpura. MUSCULOSKELTAL: Negative for Myalgia or arthralgia. NEURLOGICAL: Presyncope generalized weakness and worsening dementia. BEHAVIORAL/PSYCH: Negative. ENDOCRINE: Negative. Discharge diagnosis 1 acute renal failure, acute tubular necrosis from hypoperfusion possibly from severe bradycardia and junctional rhythm,improved. IV fluids Consult with nephrology No hydronephrosis noted on ultrasound. Continue to monitor renal function, I&O 2 severe bradycardia with sick sinus syndrome and junctional rhythm secondary to renal failure, improving. Etiology consult appreciated. Patient is off dopamine drip. He has been seeing Dr. Robert cardiology regularly. Continue Imdur, Lipitor hydralazine no plans for pacemaker outpatient cardiology follow-up 3 severe hypokalemia and hypercalcemia both improved. Continue electrolyte replacement as indicated. 4 abnormal liver function test improved: Most likely from hypoperfusion from the severity of the heart block and renal failure. Monitor labs 5 metabolic acidosis secondary to acute kidney injury. Resolved 6 acute cellulitis of the right second finger was treated with Levaquin orally recently. Finish out patient regimen 7 hyperlipidemia: Has been on atorvastatin 20 mg daily. 8 severe thrombocytopenia: Not a clear etiology. 9 hypothyroidism: Continue patient on levothyroxine 25 g daily. 10 severe neuropathy: Has been on gabapentin 400 mg daily. 11 hypertension. Amlodipine increased to 10 mg daily. 12 GI prophylaxis: We'll continue patient on pantoprazole. 13 DVT prophylaxis: Knee-high LUI hose and early mobilization 14 COVID-19 infection not present. CODE STATUS: Full code. Discharge plan: Home with [facility] Patient Condition at Discharge: Stable Plan - Discharge Summary Discharge Rx Participant: No New Discharge Prescriptions: New hydrALAZINE HCL [Apresoline] 50 mg PO TID #90 tab Lactulose [Cephulac] 10 gm PO TID PRN #500 ml PRN Reason: Constipation amLODIPine [Norvasc] 10 mg PO DAILY #30 tab Sennosides-Docusate Sodium [Senokot-S] 2 each PO DAILY PRN tab PRN Reason: Constipation Calcium Carbonate [Tums] 1,000 mg PO TID PRN chew PRN Reason: Heartburn Acetaminophen Tab [Tylenol] 650 mg PO Q6HR PRN tab PRN Reason: Mild Pain Or Fever > 100.5 Continue Levothyroxine Sodium [Synthroid] 25 mcg PO DAILY Latanoprost Ophth [Xalatan 0.005%] 1 drop BOTH EYES HS Gabapentin 400 mg PO BID Glucosamine Sulfate 500 mg PO DAILY Fish Oil/Dha/Epa [Fish Oil 1,200 mg Fish Oil] 1 tab PO DAILY Cyanocobalamin [Vitamin B-12] 500 mcg PO DAILY Cholecalciferol [Vitamin D3 (25 Mcg = 1000 Iu)] 1,000 unit PO DAILY Ca/D3/Mag/Zinc/Walker/Ed/Mgbor [Caltrate 600-D3-Min Chew Tab] 1 tab PO BID Ascorbic Acid [Vitamin C] 1,000 mg PO DAILY Isosorbide Mononitrate ER [Imdur] 30 mg PO DAILY 90 Days tab Metoprolol Tartrate [Lopressor] 25 mg PO BID #180 tablet Atorvastatin [Lipitor] 20 mg PO HS Lysine [l-Lysine] 500 mg PO DAILY Levofloxacin 500 mg PO DAILY Acetaminophen [Tylenol Extra Strength] 1,000 mg PO Q8H PRN PRN Reason: Pain Tamsulosin [Flomax] 0.4 mg PO DAILY Omeprazole 20 mg PO BID Ultimate Colon Care Formula 1 cap PO TID Discontinued amLODIPine [Norvasc] 2.5 mg PO DAILY Naproxen Sodium [Aleve] 220 mg PO BID Discharge Medication List Gabapentin 400 mg PO BID 05/10/14 [History] Latanoprost Ophth [Xalatan 0.005%] 1 drop BOTH EYES HS 05/10/14 [History] Levothyroxine Sodium [Synthroid] 25 mcg PO DAILY 05/10/14 [History] Ascorbic Acid [Vitamin C] 1,000 mg PO DAILY 05/02/15 [History] Ca/D3/Mag/Zinc/Walker/Ed/Mgbor [Caltrate 600-D3-Min Chew Tab] 1 tab PO BID 05/02/15 [History] Cholecalciferol [Vitamin D3 (25 Mcg = 1000 Iu)] 1,000 unit PO DAILY 05/02/15 [History] Cyanocobalamin [Vitamin B-12] 500 mcg PO DAILY 05/02/15 [History] Fish Oil/Dha/Epa [Fish Oil 1,200 mg Fish Oil] 1 tab PO DAILY 05/02/15 [History] Glucosamine Sulfate 500 mg PO DAILY 05/02/15 [History] Isosorbide Mononitrate ER [Imdur] 30 mg PO DAILY 90 Days tab 05/03/15 [Rx] Metoprolol Tartrate [Lopressor] 25 mg PO BID #180 tablet 05/03/15 [Rx] Atorvastatin [Lipitor] 20 mg PO HS 04/16/16 [History] Acetaminophen [Tylenol Extra Strength] 1,000 mg PO Q8H PRN 12/06/19 [History] Levofloxacin 500 mg PO DAILY 12/06/19 [History] Lysine [l-Lysine] 500 mg PO DAILY 12/06/19 [History] Omeprazole 20 mg PO BID 12/06/19 [History] Tamsulosin [Flomax] 0.4 mg PO DAILY 12/06/19 [History] Ultimate Colon Care Formula 1 cap PO TID 12/06/19 [History] Acetaminophen Tab [Tylenol] 650 mg PO Q6HR PRN tab 12/11/19 [Rx] Calcium Carbonate [Tums] 1,000 mg PO TID PRN chew 12/11/19 [Rx] Lactulose [Cephulac] 10 gm PO TID PRN #500 ml 12/11/19 [Rx] Sennosides-Docusate Sodium [Senokot-S] 2 each PO DAILY PRN tab 12/11/19 [Rx] amLODIPine [Norvasc] 10 mg PO DAILY #30 tab 12/11/19 [Rx] hydrALAZINE HCL [Apresoline] 50 mg PO TID #90 tab 12/11/19 [Rx] Follow up Appointment(s)/Referral(s): [facility], [NON-STAFF] - 1-2 Days Benji Turcios MD [Primary Care Provider] - 1-2 days Patient Instructions/Handouts: Dehydration (GEN)
== END 2019-12-11 16:20 | disposition home or self-care (01) | DRG 308 ==
LOC: EC 16:26 → 3SCARD 18:41 → 2SICU 21:53 → 5NMEDONC 12-10 19:11 → 2SICU 12-10 19:25
PROVIDERS: ADMIT Internal Medicine Geriatric Medicine; ATTEND Internal Medicine Geriatric Medicine
DX: I49.5 Sick sinus syndrome (principal); N17.0 Acute kidney failure with tubular necrosis; E87.2 Acidosis; I50.32 Chronic diastolic (congestive) heart failure; D69.6 Thrombocytopenia, unspecified; I27.20 Pulmonary hypertension, unspecified; I11.0 Hypertensive heart disease with heart failure; E03.9 Hypothyroidism, unspecified; E78.5 Hyperlipidemia, unspecified; E83.52 Hypercalcemia; E86.0 Dehydration; E87.5 Hyperkalemia; G62.9 Polyneuropathy, unspecified; H40.9 Unspecified glaucoma; K59.00 Constipation, unspecified; M19.90 Unspecified osteoarthritis, unspecified site; N40.0 Benign prostatic hyperplasia without lower urinary tract symptoms; K21.9 Gastro-esophageal reflux disease without esophagitis; R74.0 Nonspecific elevation of levels of transaminase and lactic acid dehydrogenase [LDH]; R94.5 Abnormal results of liver function studies; I08.3 Combined rheumatic disorders of mitral, aortic and tricuspid valves; Z11.59 Encounter for screening for other viral diseases; Z79.890 Hormone replacement therapy; Z79.899 Other long term (current) drug therapy; Z88.6 Allergy status to analgesic agent; Z88.1 Allergy status to other antibiotic agents; Z88.0 Allergy status to penicillin; Z88.2 Allergy status to sulfonamides; Z98.42 Cataract extraction status, left eye; Z98.41 Cataract extraction status, right eye; Z90.49 Acquired absence of other specified parts of digestive tract
CPT/HCPCS: 36415; 76770; 80048; 80053; 81001; 83605; 83735; 84100; 84132; 84443; 84484; 85025; 85610; 85730; 93005; 93306; 96365; 96366; 96375; 99291

== ENCOUNTER 2020-03-03 10:55 | Emergency (ER) | payer MEDICARE, BC ==
[2020-03-03 11:43] LABS: Basophils % (A) 0 %; Eosinophils # (A) 0.1 k/uL (0-0.7); Eosinophils % (A) 1 %; HCT 39.9 % (39.0-53.0); HGB 12.8 gm/dL (13.0-17.5); Lymphocytes # (A) 0.7 k/uL (1.0-4.8); Lymphocytes % (A) 14 %; MCH 30.9 pg (25.0-35.0); MCHC 32.1 g/dL (31.0-37.0); Mean Platelet Volume 7.9; Monocytes # (A) 0.3 k/uL (0-1.0); Monocytes % (A) 6 %; Neutrophils # (A) 3.8 k/uL (1.3-7.7); Neutrophils % (A) 77 %; Platelet Count 108 k/uL (150-450); RBC 4.15 m/uL (4.30-5.90); WBC 4.9 k/uL (3.8-10.6)
[2020-03-03 11:54] LABS: African American GFR (CKD) 62 (>60 ml/min/1.73 sqM); Anion Gap 4 mmol/L; Blood Urea Nitrogen 41 mg/dL (9-20); C Reactive Protein <5.0 mg/L (<10.0); Calcium 9.5 mg/dL (8.4-10.2); Carbon Dioxide 29 mmol/L (22-30); Chloride 105 mmol/L (98-107); Glucose 107 mg/dL (74-99); Non-African American GFR(CKD) 54 (>60 ml/min/1.73 sqM); Potassium 4.6 mmol/L (3.5-5.1); Sodium 138 mmol/L (137-145)
--- NOTE | 2020-03-03 11:55 | XR ---
EXAMINATION TYPE: XR knee complete LT DATE OF EXAM: 03/03/2020 CLINICAL HISTORY: Pain and swelling from prior injury. TECHNIQUE: Three views of the left knee are obtained. COMPARISON: None. FINDINGS: There is no acute fracture/dislocation evident in left knee. Mild to moderate tricompartme nt joint space loss is present with minimal to mild spurring. Increased density anterior to patella i s suspicious for moderate to severe prepatellar edema. Posterior vascular calcification is incidental ly seen. IMPRESSION: As above.
--- NOTE | 2020-03-03 12:27 | ED ---
Skin/Abscess/FB HPI - General Chief complaint: Skin/Abscess/Foreign Body Stated complaint: knee pain post fall 3 weeks ago Time Seen by Provider: 03/03/20 11:03 Source: patient Mode of arrival: ambulatory - History of Present Illness Initial comments: Patient is an 84-year-old male presenting to the emergency Department with complaints of increasing pain in the front of his left knee after falling about 10 days ago. Patient states he tripped in his barn landing mostly on his left knee. Patient states he was able to walk afterwards and has been feeling okay over this past week but the last few days he's noticed the pain has been increasing as well as some swelling that has been increasing in the front part of his knee. He denies any previous surgeries of his left knee. He denies any fever, chills, nausea or vomiting. He denies any other injuries from this fall. He has no further complaints. Upon arrival to the ER, his vitals are stable. - Related Data Home Medications Medication Instructions Recorded Confirmed Gabapentin 400 mg PO BID 05/10/14 12/06/19 Latanoprost Ophth [Xalatan 0.005%] 1 drop BOTH EYES HS 05/10/14 12/06/19 Levothyroxine Sodium [Synthroid] 25 mcg PO DAILY 05/10/14 12/06/19 Ascorbic Acid [Vitamin C] 1,000 mg PO DAILY 05/02/15 12/06/19 Ca/D3/Mag/Zinc/Walker/Ed/Mgbor 1 tab PO BID 05/02/15 12/06/19 [Caltrate 600-D3-Min Chew Tab] Cholecalciferol [Vitamin D3 (25 1,000 unit PO DAILY 05/02/15 12/06/19 Mcg = 1000 Iu)] Cyanocobalamin [Vitamin B-12] 500 mcg PO DAILY 05/02/15 12/06/19 Fish Oil/Dha/Epa [Fish Oil 1,200 1 tab PO DAILY 05/02/15 12/06/19 mg Fish Oil] Glucosamine Sulfate 500 mg PO DAILY 05/02/15 12/06/19 Atorvastatin [Lipitor] 20 mg PO HS 04/16/16 12/06/19 Acetaminophen [Tylenol Extra 1,000 mg PO Q8H PRN 12/06/19 12/06/19 Strength] Lysine [l-Lysine] 500 mg PO DAILY 12/06/19 12/06/19 Omeprazole 20 mg PO BID 12/06/19 12/06/19 Tamsulosin [Flomax] 0.4 mg PO DAILY 12/06/19 12/06/19 Ultimate Colon Care Formula 1 cap PO TID 12/06/19 12/06/19 levoFLOXacin 500 mg PO DAILY 12/06/19 12/06/19 Previous Rx's Medication Instructions Recorded Isosorbide Mononitrate ER [Imdur] 30 mg PO DAILY 90 Days tab 05/03/15 Metoprolol Tartrate [Lopressor] 25 mg PO BID #180 tablet 05/03/15 Acetaminophen Tab [Tylenol] 650 mg PO Q6HR PRN tab 12/11/19 Calcium Carbonate [Tums] 1,000 mg PO TID PRN chew 12/11/19 Lactulose [Cephulac] 10 gm PO TID PRN #500 ml 12/11/19 Sennosides-Docusate Sodium 2 each PO DAILY PRN tab 12/11/19 [Senokot-S] amLODIPine [Norvasc] 10 mg PO DAILY #30 tab 12/11/19 hydrALAZINE HCL [Apresoline] 50 mg PO TID #90 tab 12/11/19 Clindamycin HCl 300 mg PO Q6HR 10 Days #40 cap 03/03/20 Allergies Allergy/AdvReac Type Severity Reaction Status Date / Time Penicillins Allergy Rash/Hives Verified 03/03/20 11:03 celecoxib [From Celebrex] AdvReac bp and Verified 03/03/20 11:03 heart rate went low when taken with bactrim sulfamethoxazole AdvReac bp and Verified 03/03/20 11:03 [From Bactrim] heart rate went low when taken with celebrex trimethoprim [From Bactrim] AdvReac bp and Verified 03/03/20 11:03 heart rate went low when taken with celebrex Review of Systems ROS Statement: Those systems with pertinent positive or pertinent negative responses have been documented in the HPI. ROS Other: All systems not noted in ROS Statement are negative. Past Medical History Past Medical History: Eye Disorder, GERD/Reflux, Hyperlipidemia, Hypertension, O steoarthritis (OA), Prostate Disorder, Thyroid Disorder Additional Past Medical History / Comment(s): HIATAL HERNIA, [place] History of Any Multi-Drug Resistant Organisms: None Reported Past Surgical History: Appendectomy, Heart Catheterization, Hernia Repair Additional Past Surgical History / Comment(s): BARBRA CATARACT, bowel surgery bowel was twisted Past Anesthesia/Blood Transfusion Reactions: No Reported Reaction Past Psychological History: No Psychological Hx Reported Smoking Status: Never smoker Past Alcohol Use History: None Reported Past Drug Use History: None Reported - Past Family History Mother Family Medical History: No Reported History General Exam - General Exam Comments Initial Comments: GENERAL: Patient is well-developed and well-nourished. Patient is nontoxic and in no acute distress. HEAD: Atraumatic, normocephalic. EYES: Pupils equal round and reactive to light, extraocular movements intact, sclera anicteric, conjunctiva are normal. Eyelids were unremarkable. ENT: TMs normal, nares patent, oropharynx clear without exudates. Moist mucous membranes. NECK: Normal range of motion, supple without lymphadenopathy or JVD. LUNGS: Unlabored respirations. Breath sounds clear to auscultation bilaterally and equal. No wheezes rales or rhonchi. HEART: Regular rate and rhythm without murmurs, rubs or gallops. ABDOMEN: Soft, nontender, normoactive bowel sounds. No guarding, no rebound. No masses appreciated. : Deferred MUSCULOSKELETAL: Patient does have mild to moderate swelling of the anterior portion of the left knee compared to the right. He does have good range of motion, there is a healing scab on the anterior portion of his knee as well with some mild surrounding erythema. The knee is not warm to the touch. He is neurovascular intact. No clubbing or cyanosis. NEUROLOGICAL: Patient is alert and oriented x 3. Motor and sensory are also intact. Symmetrical smile. Normal speech, normal gait. PSYCH: Normal mood, normal affect. SKIN: Warm, Dry, normal turgor, no rashes. Course Vital Signs 03/03/20 10:58 Temperature 97.2 F L Pulse Rate 50 L Respiratory 18 Rate Blood Pressure 158/85 O2 Sat by Pulse 99 Oximetry Medical Decision Making - Medical Decision Making Patient is an 84-year-old male here for anterior left knee pain after falling on a 10 days ago. X-rays of the left knee showed no acute fracture dislocation, moderate prepatellar edema noted. I did check basic labs on the patient which shows a normal white count, normal CRP. Patient's swelling is all anterior at this point, he does have full range of motion, very little erythema, no warmth to the touch, my suspicion for a septic joint is low at this time. I discussed with patient this is most likely a mild cellulitis from the cut he sustained when he fell. Patient will be started on clindamycin. He also needs to follow up with his PCP early next week for reevaluation. Patient is agreement with this plan of care. He is stable for discharge. Return parameters were discussed with the patient and his family and they both verbalized understanding. Case discussed with Dr. Mccall. - Lab Data Result diagrams: 03/03/20 11:35 03/03/20 11:35 Lab Results 03/03/20 03/03/20 Range/Units 11:35 11:35 WBC 4.9 (3.8-10.6) k/uL RBC 4.15 L (4.30-5.90) m/uL Hgb 12.8 L (13.0-17.5) gm/dL Hct 39.9 (39.0-53.0) % MCV 96.0 (80.0-100.0) fL MCH 30.9 (25.0-35.0) pg MCHC 32.1 (31.0-37.0) g/dL RDW 13.0 (11.5-15.5) % Plt Count 108 L (150-450) k/uL Neutrophils % 77 % Lymphocytes % 14 % Monocytes % 6 % Eosinophils % 1 % Basophils % 0 % Neutrophils # 3.8 (1.3-7.7) k/uL Lymphocytes # 0.7 L (1.0-4.8) k/uL Monocytes # 0.3 (0-1.0) k/uL Eosinophils # 0.1 (0-0.7) k/uL Basophils # 0.0 (0-0.2) k/uL Sodium 138 (137-145) mmol/L Potassium 4.6 (3.5-5.1) mmol/L Chloride 105 (98-107) mmol/L Carbon Dioxide 29 (22-30) mmol/L Anion Gap 4 mmol/L BUN 41 H (9-20) mg/dL Creatinine 1.23 (0.66-1.25) mg/dL Est GFR (CKD-EPI)AfAm 62 (>60 ml/min/1.73 sqM) Est GFR (CKD-EPI)NonAf 54 (>60 ml/min/1.73 sqM) Glucose 107 H (74-99) mg/dL Calcium 9.5 (8.4-10.2) mg/dL C-Reactive Protein <5.0 (<10.0) mg/L Disposition Clinical Impression: Left anterior knee pain, Cellulitis of left knee Disposition: HOME SELF-CARE Condition: Stable Instructions (If sedation given, give patient instructions): Cellulitis (ED) Additional Instructions: Please return to the Emergency Department if symptoms worsen or any other concerns. Take antibiotic as prescribed. Follow up with PCP as discussed in the next 3-4 days. Prescriptions: Clindamycin HCl 300 mg PO Q6HR 10 Days #40 cap Is patient prescribed a controlled substance at d/c from ED?: No Referrals: Benji Turcios MD [Primary Care Provider] - 1-2 days
[2020-03-03 12:47] VITALS: BP 137/84; PULSE 52; RESP 17; TEMP 97.4
[2020-03-03 13:29] LABS: Erythrocyte Sedimentation Rate 2 mm/hr (0-15)
== END 2020-03-03 12:50 | disposition home or self-care (01) ==
LOC: EC 10:55
DX: L03.116 Cellulitis of left lower limb (principal); E07.9 Disorder of thyroid, unspecified; K21.9 Gastro-esophageal reflux disease without esophagitis; K44.9 Diaphragmatic hernia without obstruction or gangrene; H40.9 Unspecified glaucoma; M19.90 Unspecified osteoarthritis, unspecified site; E78.5 Hyperlipidemia, unspecified; N42.9 Disorder of prostate, unspecified; Z79.899 Other long term (current) drug therapy; Z79.890 Hormone replacement therapy; Z88.0 Allergy status to penicillin; Z88.1 Allergy status to other antibiotic agents; Z88.2 Allergy status to sulfonamides; Z88.6 Allergy status to analgesic agent; W01.0XXA Fall on same level from slipping, tripping and stumbling without subsequent striking against object, initial encounter
CPT/HCPCS: 36415; 80048; 85025; 85652; 86140; 99283

== ENCOUNTER 2021-12-09 09:44 | Day surgery (SDC) | payer MEDICARE, BC ==
[~2021-12-09 09:44] MED LIST: LIDOCAINE 1% (10MG/ML) FOR IV START INTRADERMA PRN
[2021-12-09 10:18] VITALS: TEMP 97.7
[2021-12-09] MEDS: LACTATED RINGERS 1,000 ML IV SCH ×2 (10:19→10:47)
[2021-12-09] MEDS ORDERED: PROPOFOL 10 MG/ML 20 ML VIAL IV ONE (10:47)
[2021-12-09] MEDS ORDERED: LIDOCAINE 2% INJ 20 MG/ML (2 ML VIAL) ONE (10:47)
--- NOTE | 2021-12-09 11:05 | P.GSHP ---
History of Present Illness H&P Date: 12/09/21 Chief Complaint: GERD This 86-year-old male presents today for EGD. He's had issues with GERD. Past Medical History Past Medical History: Eye Disorder, GERD/Reflux, Hyperlipidemia, Hypertension, Osteoarthritis (OA), Prostate Disorder, Thyroid Disorder Additional Past Medical History / Comment(s): large HIATAL HERNIA-pushing on lungs & makes him SOB w/exertion, glaucoma History of Any Multi-Drug Resistant Organisms: None Reported Past Surgical History: Appendectomy, Heart Catheterization, Hernia Repair Additional Past Surgical History / Comment(s): BARBRA CATARACT, bowel surgery bowel was twisted, inguinal hernia repair Past Anesthesia/Blood Transfusion Reactions: No Reported Reaction Smoking Status: Never smoker - Past Family History Mother Family Medical History: No Reported History Medications and Allergies Home Medications Medication Instructions Recorded Confirmed Type Gabapentin 400 mg PO BID 05/10/14 12/09/21 History Latanoprost Ophth [Xalatan 0.005%] 1 drop BOTH EYES HS 05/10/14 12/09/21 History Levothyroxine Sodium [Synthroid] 25 mcg PO DAILY 05/10/14 12/09/21 History Ascorbic Acid [Vitamin C] 1,000 mg PO DAILY 05/02/15 12/09/21 History Ca/D3/Mag/Zinc/Walker/Ed/Mgbor 1 tab PO BID 05/02/15 12/09/21 History [Caltrate 600-D3-Min Chew Tab] Cholecalciferol [Vitamin D3 (25 1,000 unit PO DAILY 05/02/15 12/09/21 History Mcg = 1000 Iu)] Cyanocobalamin [Vitamin B-12] 500 mcg PO DAILY 05/02/15 12/09/21 History Fish Oil/Dha/Epa [Fish Oil 1,200 1 tab PO DAILY 05/02/15 12/09/21 History mg Fish Oil] Glucosamine Sulfate 500 mg PO DAILY 05/02/15 12/09/21 History Isosorbide Mononitrate ER [Imdur] 30 mg PO DAILY 90 Days tab 05/03/15 12/09/21 Rx Metoprolol Tartrate [Lopressor] 25 mg PO BID #180 tablet 05/03/15 12/09/21 Rx Atorvastatin [Lipitor] 20 mg PO HS 04/16/16 12/09/21 History Acetaminophen [Tylenol Extra 1,000 mg PO Q8H PRN 12/06/19 12/09/21 History Strength] Lysine [l-Lysine] 500 mg PO DAILY 12/06/19 12/09/21 History Omeprazole 20 mg PO BID 12/06/19 12/09/21 History Tamsulosin [Flomax] 0.4 mg PO DAILY 12/06/19 12/09/21 History Ultimate Colon Care Formula 1 cap PO TID 12/06/19 12/06/21 History Calcium Carbonate [Tums] 1,000 mg PO TID PRN chew 12/11/19 12/09/21 Rx hydrALAZINE HCL [Apresoline] 50 mg PO TID #90 tab 12/11/19 12/09/21 Rx Naproxen Sodium [Aleve] 220 mg PO BID 12/06/21 12/09/21 History amLODIPine [Norvasc] 2.5 mg PO DAILY 12/06/21 12/09/21 History Allergies Allergy/AdvReac Type Severity Reaction Status Date / Time enalaprilat [From Vasotec] Allergy Unknown Verified 12/09/21 09:57 Penicillins Allergy Rash/Hives Verified 12/09/21 09:57 sertraline [From Zoloft] Allergy Unknown Verified 12/09/21 09:57 celecoxib [From Celebrex] AdvReac bp and Verified 12/09/21 09:57 heart rate went low when taken with bactrim sulfamethoxazole AdvReac bp and Verified 12/09/21 09:57 [From Bactrim] heart rate went low when taken with celebrex trimethoprim [From Bactrim] AdvReac bp and Verified 12/09/21 09:57 heart rate went low when taken with celebrex Surgical - Exam Vital Signs Temp Pulse Resp BP Pulse Ox 97.7 F 53 L 18 213/80 96 12/09/21 10:16 12/09/21 10:16 12/09/21 10:16 12/09/21 10:16 12/09/21 10:16 - General well developed, well nourished, no distress - Eyes PERRL - ENT normal pinna - Neck no masses - Respiratory normal expansion - Cardiovascular Rhythm: regular - Abdomen Abdomen: soft, non tender Assessment and Plan Assessment: GERD. We'll perform EGD.
--- NOTE | 2021-12-09 11:07 | P.OP ---
Date of Procedure: 12/09/21 Preoperative Diagnosis: GERD Postoperative Diagnosis: Large hiatal hernia with intrathoracic stomach Procedure(s) Performed: EGD Anesthesia: MAC Surgeon: Abhijit Wheeler Pathology: none sent Condition: stable Disposition: PACU Description of Procedure: The patient's placed on the endoscopy table in the lateral position. He received IV sedation. The gastro-/oropharynx passed in the esophagus and stomach. Patient had a large hiatal hernia. GE junction was at 35 cm. The distal stomach cannot be entered due to tortuosity of the stomach. Scope withdrawn. The distal esophagus appeared normal. Proximal esophagus. Scope withdrawn for patient.
[2021-12-09 11:48] VITALS: PULSE 54; RESP 16
[2021-12-09 11:49] VITALS: BP 178/92
== END 2021-12-09 12:19 | disposition home or self-care (01) ==
LOC: ORWHC2ENDO 09:44
PROVIDERS: ATTEND Surgery
DX: K21.9 Gastro-esophageal reflux disease without esophagitis (principal); K44.9 Diaphragmatic hernia without obstruction or gangrene; K31.89 Other diseases of stomach and duodenum; E78.5 Hyperlipidemia, unspecified; I10 Essential (primary) hypertension; M19.90 Unspecified osteoarthritis, unspecified site; N42.9 Disorder of prostate, unspecified; E07.9 Disorder of thyroid, unspecified; R06.02 Shortness of breath; H40.9 Unspecified glaucoma; Z90.49 Acquired absence of other specified parts of digestive tract; Z98.890 Other specified postprocedural states; Z98.42 Cataract extraction status, left eye; Z98.41 Cataract extraction status, right eye; Z79.1 Long term (current) use of non-steroidal anti-inflammatories (NSAID); Z79.890 Hormone replacement therapy; Z79.899 Other long term (current) drug therapy; Z88.0 Allergy status to penicillin; Z88.2 Allergy status to sulfonamides; Z88.8 Allergy status to other drugs, medicaments and biological substances
CPT/HCPCS: 43235; J2704; J2001

== ENCOUNTER 2022-12-23 05:47 | Inpatient (IN) | payer MEDICARE, BC ==
[2022-12-23] MEDS ORDERED: ALPRAZolam 0.25 MG TAB PO PRN (06:04)
[2022-12-23] MEDS ORDERED: ALPRAZolam 0.5 MG TAB PO PRN (06:04)
[2022-12-23] MEDS: SODIUM CHLORIDE 0.9% 1,000 ML in EMPTY BAG 1 BAG IV SCH ×3 (06:29→19:05)
[2022-12-23] MEDS ORDERED: HEPARIN SODIUM 1,000 UN/ML (10ML VL) ONE (07:35)
[2022-12-23] MEDS ORDERED: MIDAZOLAM 2 MG/2 ML VIAL IVP ONE (07:42)
[2022-12-23] MEDS ORDERED: LIDOCAINE 1% INJ 10MG/ML (5 ML VIAL-PF) SQ ONE (07:49)
[2022-12-23] MEDS ORDERED: VERAPAMIL SYRINGE (5 MG/10 ML) INTRAARTER ONE (07:50)
[2022-12-23] MEDS: HEPARIN SODIUM 1,000 UN/ML (10ML VL) IV ONE ×3 (07:53→08:23)
[2022-12-23] MEDS ORDERED: IOPAMIDOL-370 100ML BTL INJ ONE ×2 (08:15→09:34)
[2022-12-23] MEDS: PHENYLEPHRINE-0.9% NACL SYG 1,000 MCG/10 ML SYRINGE IVP ONE ×3 (08:42→08:53)
[2022-12-23] MEDS ORDERED: CLOPIDOGREL 75 MG TAB ONE (09:20)
[2022-12-23] MEDS ORDERED: fentaNYL (PF) 50 MCG/ML 2 ML AMP ONE (09:21)
[2022-12-23] MEDS ORDERED: NOREPINEPHRINE 4 MG in SODIUM CHLORIDE 0.9% 250 ML IV ONE (09:22)
[2022-12-23] MEDS ORDERED: fentaNYL (PF) 50 MCG/ML 2 ML AMP IVP ONE (09:22)
[2022-12-23] MEDS ORDERED: niCARdipine 25 MG/10 ML VIAL ONE (09:22)
[2022-12-23] MEDS ORDERED: niCARdipine Syringe (1,000 mcg/10 mL) INTRACORON ONE (09:23)
[2022-12-23] MEDS ORDERED: NITROGLYCERIN 1000MCG/10ML SYRINGE INTRACORON ONE (09:23)
[2022-12-23] MEDS ORDERED: CLOPIDOGREL 75 MG TAB PO ONE (09:30)
[2022-12-23] MEDS ORDERED: SODIUM CHLORIDE 0.9% 1,000 ML IV ONE (09:33)
[2022-12-23] MEDS ORDERED: RX INFO: IV CONTRAST WAS GIVEN 1 EACH MISC MISCELLANE PRN ×2 (09:42→13:33)
[2022-12-23] MEDS ORDERED: MAG HYDROX/AL HYDROX/SIMETH 30 ML CUP PO PRN (09:42)
[2022-12-23] MEDS ORDERED: ATROPINE SULFATE 0.1 MG/ML 10ML SYRINGE IV PRN (09:42)
[2022-12-23] MEDS ORDERED: ZOLPIDEM 5 MG TAB PO PRN (09:42)
[2022-12-23] MEDS ORDERED: NOREPINEPHRINE 4 MG in SODIUM CHLORIDE 0.9% 250 ML IV SCH (09:45)
[2022-12-23 10:33] LABS: Glucose,Whole Blood 124 mg/dL (70-110)
[2022-12-23 11:06] VITALS: BMI 23.3
[2022-12-23] MEDS: NITROGLYCERIN SL TABS 0.4 MG TAB SUBLINGUAL PRN ×2 (11:29→12:04)
[2022-12-23] MEDS ORDERED: SODIUM CHLORIDE 0.9% 1,000 ML IV SCH (13:45)
[2022-12-23] MEDS: PANTOPRAZOLE 40 MG TABLET PO SCH (14:52)
[2022-12-23] MEDS: GABAPENTIN 400 MG CAP PO SCH (20:28)
[2022-12-23] MEDS ORDERED: TAMSULOSIN 0.4 MG CAP.ER.24H PO SCH (21:00)
[2022-12-23] MEDS ORDERED: amLODIPine 2.5 MG TAB PO SCH (21:00)
[2022-12-23] MEDS ORDERED: ATORVASTATIN 80 MG TAB PO SCH (21:00)
[2022-12-23] MEDS ORDERED: LATANOPROST 0.005% OPHTH DROPS 2.5 ML BTL BOTH EYES SCH (21:00)
--- NOTE | 2022-12-23 21:00 | P.PCN ---
Date of Procedure: 12/23/22 Operative Findings: CARDIAC CATHETERIZATION AND PERCUTANEOUS CORONARY INTERVENTION PERFORMING PHYSICIAN: Ibrahima Hills MD, [facility] PROCEDURE PERFORMED: 1. Selective right and left coronary angiogram 2. Successful stenting of mid LAD using 2.75 x 28 Xience JOHN with an excellent angiographic results 3. Adjunctive use of intravascular imaging as well as Doppler wire and lithotripsy balloon 4. Ultrasound-guided access of the right radial artery INDICATION: This is an 87-year-old gentleman who continues to have intermittent episodes of chest discomfort with exertion concerning for angina. He is known to have coronary artery disease as well as hypertension and dyslipidemia. COMPLICATION: None APPROACH: Right radial artery LEVEL OF SEDATION: Moderate with the sedation time of 120 minutes PROCEDURE DESCRIPTION: After obtaining an informed consent the patient was brought to the cardiac [facility]. The right radial artery was cannulated using micropuncture technique under ultrasound guidance, the micropuncture wire passed easily then I placed a 6- Japanese sheath that the right radial artery. After that I give the patient 2 mg of verapamil intra-arterial and heparin IV. Initially the patient was given 4000 and subsequently additional heparin was given throughout the procedure with continuous ACT monitoring. Selective right and left coronary angiogram performed using JR4 and JL 3.5 catheters. After that I did intervene on the left anterior descending artery. The procedure was completed there was no complication SELECTIVE CORONARY ANGIOGRAM: The right coronary artery: Moderate caliber vessel nondominant vessel. The ostial RCA has a lesion appeared to be in the range of 50%. The RCA is extremely calcified Left main: Calcified was mild disease only. Bifurcates into an LCx and LAD. The left main is extremely calcified The left circumflex: Large caliber vessel and dominant vessel. The proximal LCx has mild disease only. The LCx in the midportion appears to be angiographically normal and distally appears to be having mild disease only and bifurcates into PDA and PLV branches. The PDA branch of the RCA has a lesion appears to be in the range of 40-50%.. The LCx is extremely calcified The left anterior descending artery: The proximal LAD appeared to have mild disease only. The mid LAD has a tubular lesion appears to be in the range of 60%. We did perform an iFR and that came in to be ischemic and 0.85. The distal LAD appears to have mild disease only and becomes extremely tortuous. The LAD gives rises into multiple small diagonal branches. The LAD is extremely calcified PCI OF THE LAD: Anticoagulation was initiated with heparin as indicated before. Continuous ACT monitoring was performed. Because I had some difficulties engaging the left main using a JL 3.5 diagnostic catheter I did use a JL4 diagnostic catheter. The aortic root/ascending aorta was slightly enlarged. With a JL4 I was able to engage the left main coronary artery. Because the lesion in the left anterior descending artery was only intermediate to severe I decided to do a Doppler wire. Before engaging the left main and after zeroing the Doppler wire and equalizing between the Doppler wire and guiding catheter which was JL4 guiding catheter and after engaging the left main I did wire the LAD using the Doppler wire. The wire was advanced to the mid to distal left anterior descending artery I subsequently the guidewire disengaged from the left main. Without adenosine and with only iFR the lesion in the LAD was flow-limiting with a number of iFR came in to be an 0.85. At that point I decided to intervene on the LAD. Because the LAD lesion was extremely calcified I decided to do lithotripsy balloon. Before that I did intravascular ultrasound of the left anterior descending artery to assess the calcium and also to assess the diameter of the LAD. The LAD has eccentric calcification with a calcium arc of more than 270. Because of that I decided to use lithotripsy balloon. Also the intravascular ultrasound identified a diameter of the LAD between 2.75-3 mm. At that point I decided to go ahead and advance 3.0 x 12 mm lithotripsy balloon. The balloon would not cross the proximal to mid left anterior descending artery. At that point I decided to use 2.0 mm regular balloon and 2 balloon angioplasty of the mid LAD preparing to advance to see balloon. Balloon angioplasty was performed on the mid LAD using 2.0 x 12 mm balloon. Attempting advancing the lithotripsy balloon was also unsuccessful in spite of using guide liner and in spite of using efra wire. At that point I decided to do balloon angioplasty again using 2.5 noncompliant balloon. Attempting advancing the balloon was unsuccessful but was successful using guide liner. Balloon angioplasty of the mid LAD was performed using 2.5 mm noncompliant balloon. At that point attempting advancing the lithotripsy balloon was again unsuccessful. It was u nsuccessful in spite of using guide liner. At that point I decided to wire the LAD using a mail man. I had some kinking in the Doppler wire where I have to leave the Doppler wire alone and wire the LAD using a run-through wire. Subsequently the Doppler wire was pulled out. I wire the LAD using a mail man. At that point attempting advancing the lithotripsy balloon was unsuccessful on both wires. I pulled the mail man wire out and I decided to use right liner again over a run-through wire. With the guide liner I was able to get the shockwave balloon to the mid LAD where I did balloon angioplasty. Subsequently I was able to advance 2.75 x 28 mm stent where the stent was positioned under fluoroscopy guidance and deployed under fluoroscopy guidance where the stent was deployed under 16 abdi for 20 seconds. The following angiogram showed good angiographic results. There was some spasm in the distal LAD on some wire bias because the LAD distal to the lesion was extremely calcified. The wire was pulled into the stented segment. I gave the patient some nitroglycerin intercoronary and some verapamil intracoronary. The pressure was low and we had to give the patient some vasopressors including norepinephrine. The patient went to the intensive care unit on small dose of norepinephrine. The plan is to wean the patient from norepinephrine. The patient did have mild chest disco mfort throughout the procedure overall he tolerated the procedure very well. After nitroglycerin intracoronary and after verapamil intracoronary I did final angiogram and that showed an excellent angiographic results. There was some concern about possible dissection in the proximal left anterior descending artery but I did intravascular ultrasound again and that showed no evidence of any dissection in the proximal left anterior descending artery and at that point we decided to stop. Using 2.5 mm noncompliant CONCLUSION: 1. Extremely calcified right and left coronary system 2. Intermediate to severe disease involving the mid LAD was a tubular lesion. iFR=0.85. Successful stenting of the LAD was performed as described above 3. Intermediate disease involving the PDA branch of the left circumflex POSTPROCEDURE MANAGEMENT: 1. Dual antiplatelet therapy using aspirin and Plavix for 12 month 2. Aggressive cholesterol control 3. Follow-up with the patient
[2022-12-23] MEDS: METOPROLOL TARTRATE 25 MG TAB PO SCH (23:04)
[2022-12-24] MEDS: PANTOPRAZOLE 40 MG TABLET PO SCH (06:16)
[2022-12-24 06:17] LABS: African American GFR (CKD) 68 (>60 ml/min/1.73 sqM); Anion Gap 10 mmol/L; Blood Urea Nitrogen 38 mg/dL (9-20); Calcium 8.7 mg/dL (8.4-10.2); Carbon Dioxide 19 mmol/L (22-30); Chloride 107 mmol/L (98-107); Glucose 101 mg/dL (74-99); Non-African American GFR(CKD) 59 (>60 ml/min/1.73 sqM); Potassium 4.7 mmol/L (3.5-5.1); Sodium 136 mmol/L (137-145)
[2022-12-24] MEDS ORDERED: LEVOTHYROXINE 25 MCG TAB PO SCH (06:30)
[2022-12-24 06:47] LABS: Basophils % (A) 0 %; Eosinophils # (A) 0.1 k/uL (0-0.7); Eosinophils % (A) 1 %; HCT 39.9 % (39.0-53.0); HGB 12.7 gm/dL (13.0-17.5); Lymphocytes # (A) 0.9 k/uL (1.0-4.8); Lymphocytes % (A) 18 %; MCH 30.7 pg (25.0-35.0); MCHC 31.8 g/dL (31.0-37.0); MCV 96.5 fL (80.0-100.0); Mean Platelet Volume 8.5; Monocytes # (A) 0.4 k/uL (0-1.0); Monocytes % (A) 8 %; Neutrophils # (A) 3.6 k/uL (1.3-7.7); Neutrophils % (A) 71 %; Platelet Count 125 k/uL (150-450); RBC 4.14 m/uL (4.30-5.90); RDW 14.4 % (11.5-15.5); WBC 5.1 k/uL (3.8-10.6)
--- NOTE | 2022-12-24 08:13 | P.DS ---
Providers Date of admission: 12/23/22 09:45 Attending physician: Ibrahima Hills Consults: 12/23/22 09:42 Consult Physician Routine Consulting Provider: [facility] Consult Reason/Comments: Post Interventional Patient Do you want consulting provider notified?: Already Contacted [facility] Course: The patient is an 87-year-old gentleman who was admitted to the hospital yesterday and underwent successful stenting of the mid left anterior descending artery which was extremely calcified with a long and complex procedure with adjunctive use of lithotripsy balloon by the end with good angiographic results. By the end of the procedure the patient was experiencing some chest discomfort. Also his pressure has been low and he requires norepinephrine and for that reason he was admitted to the intensive care unit for overnight observation. Overnight the patient did well. His chest discomfort has resolved completely and we were able to wean him from norepinephrine. Currently he is not on any vasopressors. He is asymptomatic and he is hemodynamically stable. The right radial site is soft and nontender with a good pulse. The patient was seen and evaluated and examined this morning. He is going to be discharged home. He would be discharged on dual antiplatelet therapy along with a statin. I am going to follow-up with the patient next week in the office Plan - Discharge Summary Discharge Rx Participant: Yes New Discharge Prescriptions: New Aspirin 81 mg PO DAILY #90 tab Clopidogrel [Plavix] 75 mg PO DAILY #90 tablet Continue Levothyroxine Sodium [Synthroid] 25 mcg PO DAILY Latanoprost Ophth [Xalatan 0.005%] 1 drop BOTH EYES HS Gabapentin 400 mg PO BID Fish Oil/Dha/Epa [Fish Oil 1,200 mg Fish Oil] 1 tab PO DAILY Cyanocobalamin [Vitamin B-12] 1,000 mcg PO DAILY Cholecalciferol [Vitamin D3 (25 Mcg = 1000 Iu)] 1,000 unit PO DAILY Ascorbic Acid [Vitamin C] 500 mg PO DAILY Isosorbide Mononitrate ER [Imdur] 30 mg PO DAILY 90 Days tab Metoprolol Tartrate [Lopressor] 25 mg PO BID #180 tablet Atorvastatin [Lipitor] 20 mg PO HS Acetaminophen [Tylenol Extra Strength] 500 mg PO Q8H PRN PRN Reason: Pain Tamsulosin [Flomax] 0.4 mg PO HS Omeprazole 20 mg PO BID amLODIPine [Norvasc] 2.5 mg PO HS Zinc Gluconate [Zinc] 50 mg PO DAILY Joint Support 2 tab PO DAILY Calcium Carbonate [Calcium] 1,200 mg PO DAILY Discharge Medication List Gabapentin 400 mg PO BID 05/10/14 [History] Latanoprost Ophth [Xalatan 0.005%] 1 drop BOTH EYES HS 05/10/14 [History] Levothyroxine Sodium [Synthroid] 25 mcg PO DAILY 05/10/14 [History] Ascorbic Acid [Vitamin C] 500 mg PO DAILY 05/02/15 [History] Cholecalciferol [Vitamin D3 (25 Mcg = 1000 Iu)] 1,000 unit PO DAILY 05/02/15 [History] Cyanocobalamin [Vitamin B-12] 1,000 mcg PO DAILY 05/02/15 [History] Fish Oil/Dha/Epa [Fish Oil 1,200 mg Fish Oil] 1 tab PO DAILY 05/02/15 [History] Isosorbide Mononitrate ER [Imdur] 30 mg PO DAILY 90 Days tab 05/03/15 [Rx] Metoprolol Tartrate [Lopressor] 25 mg PO BID #180 tablet 05/03/15 [Rx] Atorvastatin [Lipitor] 20 mg PO HS 04/16/16 [History] Acetaminophen [Tylenol Extra Strength] 500 mg PO Q8H PRN 12/06/19 [History] Omeprazole 20 mg PO BID 12/06/19 [History] Tamsulosin [Flomax] 0.4 mg PO HS 12/06/19 [History] amLODIPine [Norvasc] 2.5 mg PO HS 12/06/21 [History] Calcium Carbonate [Calcium] 1,200 mg PO DAILY 12/17/22 [History] Joint Support 2 tab PO DAILY 12/17/22 [History] Zinc Gluconate [Zinc] 50 mg PO DAILY 12/17/22 [History] Aspirin 81 mg PO DAILY #90 tab 12/24/22 [Rx] Clopidogrel [Plavix] 75 mg PO DAILY #90 tablet 12/24/22 [Rx] Follow up Appointment(s)/Referral(s): Ibrahima Hills MD [STAFF PHYSICIAN] - 1 Week
[2022-12-24] MEDS ORDERED: ASCORBIC ACID 500 MG TAB PO SCH (09:00)
[2022-12-24] MEDS ORDERED: ASPIRIN 81 MG PO SCH (09:00)
[2022-12-24] MEDS ORDERED: ZINC SULFATE 220 MG CAP PO SCH (09:00)
[2022-12-24] MEDS ORDERED: CLOPIDOGREL 75 MG TAB PO SCH (09:00)
[2022-12-24] MEDS ORDERED: ISOSORBIDE MONONITRATE ER 30 MG TAB.ER.24H PO SCH (09:00)
[2022-12-24] MEDS: METOPROLOL TARTRATE 25 MG TAB PO SCH (10:16)
[2022-12-24] MEDS: GABAPENTIN 400 MG CAP PO SCH (10:17)
[2022-12-24 10:31] VITALS: BP 164/77; PULSE 53; RESP 69; TEMP 98.5
== END 2022-12-24 12:00 | disposition home or self-care (01) | DRG 247 ==
LOC: CATHCVL 05:47 → 2SICU 09:35 → CATHCVL 09:45
PROVIDERS: ADMIT Internal Medicine Interventional Cardiology; ATTEND Internal Medicine Interventional Cardiology
PROC: 4A023N7 Measurement of Cardiac Sampling and Pressure, Left Heart, Percutaneous Approach (ICD-10-PCS; principal; 2022-12-23 07:30)
PROC: 02F03ZZ Fragmentation in Coronary Artery, One Artery, Percutaneous Approach (ICD-10-PCS; principal; 2022-12-23 07:30)
PROC: 027034Z Dilation of Coronary Artery, One Artery with Drug-eluting Intraluminal Device, Percutaneous Approach (ICD-10-PCS; principal; 2022-12-23 07:30)
PROC: B2111ZZ Fluoroscopy of Multiple Coronary Arteries using Low Osmolar Contrast (ICD-10-PCS; principal; 2022-12-23 07:30)
DX: I25.119 Atherosclerotic heart disease of native coronary artery with unspecified angina pectoris (principal); I27.20 Pulmonary hypertension, unspecified; I25.84 Coronary atherosclerosis due to calcified coronary lesion; E78.5 Hyperlipidemia, unspecified; I10 Essential (primary) hypertension; I08.3 Combined rheumatic disorders of mitral, aortic and tricuspid valves
CPT/HCPCS: 0715T; 80048; 85025; 92978; 93454; 93799

== ENCOUNTER → 2024-10-21 | Outpatient (CLI) | payer MEDICARE, BC ==
--- NOTE | 2024-10-21 13:12 | MR ---
EXAMINATION TYPE: MR lumbar spine wo con DATE OF EXAM: 10/21/2024 COMPARISON: NONE HISTORY: Lower back and right hip pain, RLE radiculopathy. Scoliosis. TECHNIQUE: Multiplanar, multisequence imaging of the lumbar spine is performed without IV contrast. FINDINGS: Marked dextroconvex scoliosis centered at L2-L3 level. Sagittal images of the lumbar spine show vertebral body heights to appear satisfactory. There is grade 1 retrolisthesis L1 on L2 and to a greater degree L2 on L3. There is slight grade 1 anterolisthesis L3 on L4 and L4 on L5. There is mul tilevel disc desiccation along with advanced disc space narrowing at L2-L3 through L4-L5 levels. The conus medullaris is normal in position and signal ending inferior L1 level. Heterogeneous Modic type II endplate changes at the right L4-L5 level is seen. Axial images show T12-L1 level to appear within normal limits. Axial images at L1-L2 level show [id number] broad disc bulge effacing the anterior thecal sac a nd mild/moderate facet arthropathy and ligamentum flavum hypertrophy with effacement of the left late ral thecal sac. Mild to moderate left-sided neural foraminal narrowing is seen. Axial images at L2-L3 level show spondylolisthesis with posterior spur disc complex mildly effaces th e anterior thecal sac and mild/moderate facet arthropathy bilaterally. There is some effacement of th e posterior lateral thecal sac bilaterally. There is severe left-sided neural foraminal narrowing. Axial images at the L3-L4 level show moderate to advanced facet arthropathy bilaterally. There is rig ht paracentral disc protrusion effaces the anterior thecal sac. There is advanced left and mild right -sided neural foraminal narrowing seen. Axial images at L4-L5 levels with spondylolisthesis with broad based right paracentral disc protrusio n effaces the anterior thecal sac. There is moderate facet arthropathy and ligament flavum hypertroph y effacing the posterior lateral thecal sac bilaterally. There is advanced right-sided neural foramin al narrowing noted. Axial images at L5-S1 level shows [id number] facet arthropathy bilaterally. Spinal canal is pre served. Bilateral neural foramina are patent. There are 2 adjacent simple appearing thin-walled cysts in the left kidney axial image 30. 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 [facility], , 10/21/2024 1:09 PM
== END | disposition home or self-care (01) ==
LOC: RADMRIMAIN 11:20
PROVIDERS: ATTEND Physical Medicine & Rehabilitation
DX: M48.062 Spinal stenosis, lumbar region with neurogenic claudication (principal); M51.17 Intervertebral disc disorders with radiculopathy, lumbosacral region; M41.26 Other idiopathic scoliosis, lumbar region; M47.27 Other spondylosis with radiculopathy, lumbosacral region
CPT/HCPCS: 72148